=== PATIENT | male | born 1970 | race Caucasian/White ===

== ENCOUNTER 2017-08-21 13:53 | Observation (INO) | payer MEDICAID, OTHER ==
[~2017-08-21] VITALS: Ht 172.7 cm; Wt 86.0 kg
[2017-08-21] MEDS ORDERED: CARV3.1212 PO (14:01)
[2017-08-21] MEDS ORDERED: LISI-170 PO (14:01)
[2017-08-21] MEDS ORDERED: SODIUM CHLORIDE 0.9% 1,000ML IVBOLUS ONE (14:30)
[2017-08-21] MEDS ORDERED: LORazepam 2 MG/ML, 1ML IVPush ONE (14:30)
[2017-08-21] MEDS ORDERED: SODIUM CHLORIDE FLUSH 10ML SYR IVF ONE (14:30)
[2017-08-21 15:00] LABS: BASOPHILS # (AUTO) 0.05 x10^3/uL (0-0.1); BASOPHILS % (AUTO) 0 % (0-1); EOSINOPHILS # (AUTO) 0.15 x10^3/uL (0-0.4); EOSINOPHILS % (AUTO) 1 % (1-7); LYMPHOCYTES # (AUTO) 1.74 x10^3/uL (1-3.4); LYMPHOCYTES % (AUTO) 16 % (22-44); MD NO; MEAN CORPUSCULAR HEMOGLOBIN 29.1 pg (27.5-34.5); MEAN CORPUSCULAR HGB CONC 33.5 g/dL (33.2-36.2); MEAN CORPUSCULAR VOLUME 87.1 fL (81-97); MEAN PLATELET VOLUME 7.2 fL (7.4-10.4); MONOCYTES # (AUTO) 0.52 x10^3/uL (0.2-0.8); MONOCYTES % (AUTO) 5 % (2-9); NEUTROPHILS # (AUTO) 8.71 x10^3/uL (1.8-6.8); NEUTROPHILS % (AUTO) 78 % (42-75); PLATELET COUNT 353 x10^3/uL (130-400); RED BLOOD COUNT 5.92 x10^6/uL (4.38-5.82)
[2017-08-21 15:08] LABS: ALBUMIN 3.9 g/dL (3.4-5.0); ANION GAP 6 mmol/L (5-15); CALCIUM 8.7 mg/dL (8.5-10.1); CHLORIDE 105 mmol/L (98-107)
[2017-08-21 15:09] LABS: SALICYLATE LEVEL < 1.7 mg/dL (2.8-20.0)
[2017-08-21 15:12] LABS: ALANINE AMINOTRANSFERASE 57 U/L (12-78); ALKALINE PHOSPHATASE 70 U/L (45-117); BILIRUBIN,TOTAL 0.9 mg/dL (0.2-1.0); TOTAL PROTEIN 7.3 g/dL (6.4-8.2)
[2017-08-21 15:13] LABS: ACETAMINOPHEN < 2 mcg/mL (10-30)
[2017-08-21] MEDS ORDERED: LORazepam 2 MG/ML, 1ML ONE (15:15)
[2017-08-21 15:35] LABS: AMPHETAMINE SCREEN, URINE Negative (Negative); BARBITURATE SCREEN, URINE Negative (Negative); BENZODIAZEPINE SCREEN, URINE Negative (Negative); CANNABINOID SCREEN, URINE Negative (Negative); COCAINE SCREEN, URINE Negative (Negative); METHADONE SCREEN, URINE Negative (Negative); OPIATE SCREEN, URINE Negative (Negative)
[2017-08-21] MEDS ORDERED: HYDR50TA13 PO (15:49)
[2017-08-21] MEDS ORDERED: SERT100T PO (15:49)
[2017-08-21] MEDS ORDERED: ACETAMINOPHEN 325 MG TABLET PO PRN (20:30)
[2017-08-21] MEDS ORDERED: POLYETHYLENE GLYCOL 17 GM PACKET PO PRN (20:30)
[2017-08-21] MEDS: INSULIN REGULAR 100 UNITS/ML, 3ML VIAL SQ-INSULIN SCH (21:00)
[2017-08-21] MEDS ORDERED: SERTRALINE 50MG TABLET ONE (21:29)
[2017-08-21] MEDS ORDERED: hydrOXyzine 50MG TABLET ONE (21:29)
[2017-08-21] MEDS ORDERED: CARVEDILOL 3.125 MG TABLET ONE (21:29)
[2017-08-21] MEDS: CARVEDILOL 3.125 MG TABLET PO SCH (21:32)
[2017-08-21] MEDS: hydrOXyzine 50MG TABLET PO SCH (21:32)
[2017-08-21] MEDS: SERTRALINE 100MG TABLET PO SCH (21:32)
[2017-08-21] MEDS ORDERED: TEMAZEPAM 15 MG CAPSULE ONE (21:40)
[2017-08-21] MEDS: TEMAZEPAM 15 MG CAPSULE PO PRN (21:44)
[2017-08-22] MEDS ORDERED: LORazepam 1MG TABLET PO ONE ×2 (02:30)
[2017-08-22] MEDS: INSULIN REGULAR 100 UNITS/ML, 3ML VIAL SQ-INSULIN SCH ×4 (07:00→20:39)
[2017-08-22] MEDS ORDERED: LISINOPRIL 20 MG TABLET ONE (07:51)
[2017-08-22] MEDS ORDERED: hydrOXyzine 50MG TABLET ONE (07:51)
[2017-08-22] MEDS ORDERED: CARVEDILOL 3.125 MG TABLET ONE (07:52)
[2017-08-22] MEDS: hydrOXyzine 50MG TABLET PO SCH ×3 (07:58→20:39)
[2017-08-22] MEDS: CARVEDILOL 3.125 MG TABLET PO SCH ×2 (07:59→20:39)
[2017-08-22] MEDS: LISINOPRIL 20 MG TABLET PO SCH (07:59)
[2017-08-22] MEDS ORDERED: LORazepam 1MG TABLET ONE (08:00)
[2017-08-22] MEDS ORDERED: SERTRALINE 50MG TABLET ONE (08:00)
[2017-08-22] MEDS: SERTRALINE 100MG TABLET PO SCH ×2 (08:01→20:39)
[2017-08-22] MEDS ORDERED: ZIPRASIDONE 20MG CAPSULE ONE (11:23)
[2017-08-22] MEDS: ZIPRASIDONE 20MG CAPSULE PO PRN (11:25)
[2017-08-22 15:55] VITALS: BP 105/68
[2017-08-22] MEDS ORDERED: METF500T27 PO (16:25)
[2017-08-22] MEDS ORDERED: HYDR25TA6 PO (16:28)
[2017-08-22] MEDS ORDERED: HYDR50TA13 PO (16:30)
[2017-08-22] MEDS ORDERED: LORA-446 PO (16:36)
[2017-08-22 20:44] VITALS: BP 108/68
[2017-08-23 06:43] VITALS: BP 132/85
[2017-08-23] MEDS: INSULIN REGULAR 100 UNITS/ML, 3ML VIAL SQ-INSULIN SCH ×4 (07:00→21:00)
[2017-08-23 07:08] VITALS: BP 97/65
[2017-08-23 08:06] VITALS: BP 106/67
[2017-08-23] MEDS: SERTRALINE 100MG TABLET PO SCH ×2 (08:09→20:46)
[2017-08-23] MEDS: hydrOXyzine 50MG TABLET PO SCH ×3 (08:09→20:46)
[2017-08-23 09:54] VITALS: BP_SYST 118; BP_SYST 146; BP_DIAS 69; BP_DIAS 71
[2017-08-23] MEDS: LISINOPRIL 20 MG TABLET PO SCH (09:56)
[2017-08-23] MEDS: CARVEDILOL 3.125 MG TABLET PO SCH ×2 (09:56→20:47)
[2017-08-23] MEDS: ZIPRASIDONE 20MG CAPSULE PO PRN (17:26)
[2017-08-23 17:27] VITALS: BP 112/71
[2017-08-23 19:46] VITALS: BP 117/79
[2017-08-23] MEDS: TEMAZEPAM 15 MG CAPSULE PO PRN (20:46)
[2017-08-24] MEDS: INSULIN REGULAR 100 UNITS/ML, 3ML VIAL SQ-INSULIN SCH ×4 (07:27→21:00)
[2017-08-24 08:00] VITALS: BP 112/71
[2017-08-24] MEDS: hydrOXyzine 50MG TABLET PO SCH ×3 (08:32→21:26)
[2017-08-24] MEDS: LISINOPRIL 20 MG TABLET PO SCH (08:32)
[2017-08-24] MEDS: SERTRALINE 100MG TABLET PO SCH ×2 (08:32→21:26)
[2017-08-24] MEDS: CARVEDILOL 3.125 MG TABLET PO SCH ×2 (08:33→21:26)
[2017-08-24] MEDS: ZIPRASIDONE 20MG CAPSULE PO PRN (14:32)
[2017-08-24 19:52] VITALS: BP 113/73
[2017-08-24] MEDS: TEMAZEPAM 15 MG CAPSULE PO PRN (22:51)
[2017-08-25] MEDS: INSULIN REGULAR 100 UNITS/ML, 3ML VIAL SQ-INSULIN SCH ×4 (07:48→20:45)
[2017-08-25 08:38] VITALS: BP 122/80
[2017-08-25] MEDS: hydrOXyzine 50MG TABLET PO SCH ×3 (09:00→20:33)
[2017-08-25] MEDS: SERTRALINE 100MG TABLET PO SCH ×2 (09:00→20:33)
[2017-08-25] MEDS: LISINOPRIL 20 MG TABLET PO SCH (09:00)
[2017-08-25] MEDS: CARVEDILOL 3.125 MG TABLET PO SCH ×2 (09:01→20:33)
[2017-08-25 10:34] VITALS: BP 133/75
[2017-08-25] MEDS: ZIPRASIDONE 20MG CAPSULE PO PRN ×2 (10:34→18:14)
[2017-08-25 19:53] VITALS: BP 113/75
[2017-08-25] MEDS: TEMAZEPAM 15 MG CAPSULE PO PRN (21:55)
[2017-08-26] MEDS: INSULIN REGULAR 100 UNITS/ML, 3ML VIAL SQ-INSULIN SCH ×4 (07:00→19:55)
[2017-08-26 07:40] VITALS: BP 138/80
[2017-08-26] MEDS: hydrOXyzine 50MG TABLET PO SCH ×3 (08:52→20:18)
[2017-08-26] MEDS: SERTRALINE 100MG TABLET PO SCH ×2 (08:52→20:18)
[2017-08-26] MEDS: CARVEDILOL 3.125 MG TABLET PO SCH ×2 (08:52→20:18)
[2017-08-26] MEDS: LISINOPRIL 20 MG TABLET PO SCH (08:53)
[2017-08-26] MEDS: ZIPRASIDONE 20MG CAPSULE PO PRN ×2 (08:53→20:19)
[2017-08-26] MEDS: NICOTINE GUM 2 MG BC PRN ×3 (12:16→21:08)
[2017-08-26 19:55] VITALS: BP 118/80
[2017-08-26] MEDS: TEMAZEPAM 15 MG CAPSULE PO PRN (23:54)
[2017-08-27] MEDS: INSULIN REGULAR 100 UNITS/ML, 3ML VIAL SQ-INSULIN SCH ×2 (07:00→11:00)
[2017-08-27 08:02] VITALS: BP 121/84
[2017-08-27] MEDS: CARVEDILOL 3.125 MG TABLET PO SCH ×2 (08:02→20:27)
[2017-08-27] MEDS: LISINOPRIL 20 MG TABLET PO SCH (08:02)
[2017-08-27] MEDS: NICOTINE GUM 2 MG BC PRN ×4 (08:02→20:30)
[2017-08-27] MEDS: hydrOXyzine 50MG TABLET PO SCH ×3 (08:02→20:27)
[2017-08-27] MEDS: SERTRALINE 100MG TABLET PO SCH ×2 (08:02→20:27)
[2017-08-27] MEDS: ZIPRASIDONE 20MG CAPSULE PO PRN ×3 (08:04→19:28)
[2017-08-27 19:43] VITALS: BP 142/75
[2017-08-27] MEDS: metFORMIN XR 500 MG TAB.ER.24H PO SCH (20:27)
[2017-08-27] MEDS: TEMAZEPAM 15 MG CAPSULE PO PRN (21:26)
[2017-08-28] MEDS: NICOTINE GUM 2 MG BC PRN ×2 (06:23→16:27)
[2017-08-28] MEDS: ZIPRASIDONE 20MG CAPSULE PO PRN ×3 (06:29→16:27)
[2017-08-28 07:35] VITALS: BP 118/76
[2017-08-28] MEDS: hydrOXyzine 50MG TABLET PO SCH ×3 (08:02→21:23)
[2017-08-28] MEDS: SERTRALINE 100MG TABLET PO SCH ×2 (08:02→21:25)
[2017-08-28] MEDS: CARVEDILOL 3.125 MG TABLET PO SCH ×2 (08:02→21:23)
[2017-08-28] MEDS: metFORMIN XR 500 MG TAB.ER.24H PO SCH ×2 (08:02→21:24)
[2017-08-28] MEDS: LISINOPRIL 20 MG TABLET PO SCH (08:02)
[2017-08-28] MEDS: LORazepam 0.5MG TABLET PO PRN ×2 (14:07→18:14)
[2017-08-28 19:47] VITALS: BP 110/57
[2017-08-28] MEDS: TEMAZEPAM 15 MG CAPSULE PO PRN (23:37)
[2017-08-29] MEDS: LORazepam 0.5MG TABLET PO PRN ×2 (03:25→10:37)
[2017-08-29] MEDS: ZIPRASIDONE 20MG CAPSULE PO PRN ×2 (04:56→16:42)
[2017-08-29 05:01] VITALS: BP 123/82
[2017-08-29] MEDS: NICOTINE GUM 2 MG BC PRN ×4 (07:34→16:42)
[2017-08-29] MEDS: hydrOXyzine 50MG TABLET PO SCH ×3 (07:41→21:27)
[2017-08-29 07:55] VITALS: BP 132/87
[2017-08-29] MEDS: CARVEDILOL 3.125 MG TABLET PO SCH ×2 (08:04→21:27)
[2017-08-29] MEDS: LISINOPRIL 20 MG TABLET PO SCH (08:05)
[2017-08-29] MEDS: SERTRALINE 100MG TABLET PO SCH ×2 (08:05→21:00)
[2017-08-29] MEDS: metFORMIN XR 500 MG TAB.ER.24H PO SCH ×2 (08:05→21:27)
[2017-08-29] MEDS: LORazepam 1MG TABLET PO PRN (17:53)
[2017-08-29 19:46] VITALS: BP 124/80
[2017-08-30] MEDS: NICOTINE GUM 2 MG BC PRN ×2 (05:18→12:09)
[2017-08-30] MEDS: LORazepam 1MG TABLET PO PRN (05:25)
[2017-08-30 07:52] VITALS: BP 131/80
[2017-08-30] MEDS: hydrOXyzine 50MG TABLET PO SCH ×2 (08:39→14:54)
[2017-08-30] MEDS: SERTRALINE 100MG TABLET PO SCH (08:39)
[2017-08-30] MEDS: LISINOPRIL 20 MG TABLET PO SCH (08:39)
[2017-08-30] MEDS: CARVEDILOL 3.125 MG TABLET PO SCH (08:40)
[2017-08-30] MEDS: ZIPRASIDONE 20MG CAPSULE PO PRN (08:40)
[2017-08-30] MEDS: metFORMIN XR 500 MG TAB.ER.24H PO SCH (08:40)
== END 2017-08-30 15:06 | disposition home or self-care (01) ==
LOC: ED 14:48 → EDIP 20:21 → INTOOBSV 20:21 → SUATTDRO 20:21 → 3E 08-22 15:31
PROVIDERS: ADMIT Hospitalist; ATTEND Hospitalist
DX: T43.222A Poisoning by selective serotonin reuptake inhibitors, intentional self-harm, initial encounter (principal); F32.9 Major depressive disorder, single episode, unspecified; E11.9 Type 2 diabetes mellitus without complications; E78.00 Pure hypercholesterolemia, unspecified; F41.1 Generalized anxiety disorder; I10 Essential (primary) hypertension; Y92.89 Other specified places as the place of occurrence of the external cause
CPT/HCPCS: 36415; 71045; 80053; 80307; 80329; 82550; 82962; 85025; 93005; 96361; 96374; 99285; G0378; J2060; J7030; 96365; G0480

== ENCOUNTER 2017-10-27 21:17 | Emergency (ER) | payer MEDICAID, OTHER ==
[~2017-10-27] VITALS: Ht 172.7 cm; Wt 88.0 kg
[~2017-10-27 21:17] MED LIST: CARV3.1212 PO; HYDR25TA6 PO; HYDR50TA13 PO; LISI-170 PO; LORA-446 PO; METF500T27 PO; SERT100T PO
[2017-10-27] MEDS ORDERED: LORazepam 1MG TABLET PO ONE (22:00)
[2017-10-27 22:11] LABS: ANION GAP 9 mmol/L (5-15); CALCIUM 8.6 mg/dL (8.5-10.1); CHLORIDE 107 mmol/L (98-107); CREATININE 1.25 mg/dL (0.7-1.3)
[2017-10-27] MEDS ORDERED: ZIPRASIDONE 20 MG INJ IM ONE ×3 (22:14→23:50)
[2017-10-28] MEDS ORDERED: ZIPRASIDONE 20 MG INJ IM ONE
[2017-10-28 00:13] VITALS: BP 149/53
== END 2017-10-28 00:15 | disposition home or self-care (01) ==
LOC: ED 22:27
DX: F31.12 Bipolar disorder, current episode manic without psychotic features, moderate (principal); I10 Essential (primary) hypertension; E11.9 Type 2 diabetes mellitus without complications; F32.9 Major depressive disorder, single episode, unspecified
CPT/HCPCS: 36415; 80048; 96372; 99284; J3486

== ENCOUNTER 2018-07-22 12:34 | Inpatient (IN) | payer MEDICAID ==
[~2018-07-22] VITALS: Ht 172.7 cm; Wt 93.8 kg
[2018-07-22 13:30] VITALS: BP 127/87
[2018-07-22] MEDS ORDERED: PLEASE ENTER HEIGHT AND WEIGHT MC SCH ×2 (14:25→14:30)
[2018-07-22] MEDS ORDERED: ACETAMINOPHEN 325 MG TABLET PO PRN (14:30)
[2018-07-22] MEDS ORDERED: DEXTROSE 50%, 50ML SYRINGE IVPush PRN (14:30)
[2018-07-22] MEDS ORDERED: BISACODYL 10 MG SUPP PR PRN (14:30)
[2018-07-22] MEDS ORDERED: GLUCAGON 1 MG IM PRN (14:30)
[2018-07-22] MEDS ORDERED: SENNA/DOCUSATE TABLET PO PRN (14:30)
[2018-07-22] MEDS ORDERED: DEXTROSE 4 GM TAB.CHEW PO PRN (14:30)
[2018-07-22] MEDS ORDERED: LORazepam 2 MG/ML, 1ML IV PRN ×4 (14:30)
[2018-07-22 15:42] LABS: BASOPHILS % (AUTO) 0 % (0-1); EOSINOPHILS # (AUTO) 0.01 x10^3/uL (0-0.4); EOSINOPHILS % (AUTO) 0 % (1-7); LYMPHOCYTES # (AUTO) 0.72 x10^3/uL (1-3.4); LYMPHOCYTES % (AUTO) 7 % (22-44); MD NO; MEAN CORPUSCULAR HEMOGLOBIN 31.3 pg (27.5-34.5); MEAN CORPUSCULAR HGB CONC 34.5 g/dL (33.2-36.2); MEAN CORPUSCULAR VOLUME 90.9 fL (81-97); MEAN PLATELET VOLUME 7.9 fL (7.4-10.4); MONOCYTES # (AUTO) 0.42 x10^3/uL (0.2-0.8); MONOCYTES % (AUTO) 4 % (2-9); NEUTROPHILS # (AUTO) 8.87 x10^3/uL (1.8-6.8); NEUTROPHILS % (AUTO) 89 % (42-75); PLATELET COUNT 256 x10^3/uL (130-400); RED BLOOD COUNT 5.35 x10^6/uL (4.38-5.82); RED CELL DISTRIBUTION WIDTH 12.8 % (9.4-14.8)
[2018-07-22 15:45] VITALS: BP 127/81
[2018-07-22 15:46] LABS: O2 FLOW ROOM AIR L/min
[2018-07-22] MEDS: LORazepam 2 MG/ML, 1ML IV PRN ×2 (15:46→17:30)
[2018-07-22] MEDS: HEPARIN 5,000 UNITS/ML, 1ML SQ SCH ×2 (15:46→20:35)
[2018-07-22 15:54] LABS: ALANINE AMINOTRANSFERASE 30 U/L (12-78); ALBUMIN 4.5 g/dL (3.4-5.0); ANION GAP 13 mmol/L (5-15); CALCIUM 9.7 mg/dL (8.5-10.1); CHLORIDE 89 mmol/L (98-107); CREATININE 1.95 mg/dL (0.7-1.3)
[2018-07-22 15:55] LABS: INTERNATIONAL NORMALIZED RATIO 1.08 (0.93-1.1); PROTHROMBIN TIME 11.3 Seconds (9.6-11.5)
[2018-07-22 15:56] LABS: ALKALINE PHOSPHATASE 118 U/L (45-117); BILIRUBIN,TOTAL 1.4 mg/dL (0.2-1.0); TOTAL PROTEIN 8.4 g/dL (6.4-8.2)
[2018-07-22] MEDS: SODIUM CHLORIDE 0.9% 1,000 ML IV SCH (17:20)
[2018-07-22] MEDS: metFORMIN 500 MG TABLET PO SCH (17:21)
[2018-07-22] MEDS: INSULIN LISPRO 100 UNITS/ML, PEN SQ-INSULIN SCH ×2 (18:06→20:50)
[2018-07-22] MEDS: POTASSIUM CHLORIDE 20 MEQ, MAGNESIUM SULFATE 1 GM, FOLIC ACID 1 MG, THIAMINE 200 MG, MV... IV SCH (18:17)
[2018-07-22 19:13] LABS: TROPONIN I 0.032 ng/mL (0.000-0.045)
[2018-07-22 19:22] LABS: AMPHETAMINE SCREEN, URINE Negative (Negative); BARBITURATE SCREEN, URINE Negative (Negative); BENZODIAZEPINE SCREEN, URINE Negative (Negative); CANNABINOID SCREEN, URINE Negative (Negative); CHLORIDE,URINE RANDOM 38 mmol/L; COCAINE SCREEN, URINE Negative (Negative); METHADONE SCREEN, URINE Negative (Negative); OPIATE SCREEN, URINE Positive (Negative); POTASSIUM,URINE RANDOM 23 mmol/L; SODIUM,URINE RANDOM 23 mmol/L
[2018-07-22] MEDS: ATORVASTATIN 20 MG TABLET PO SCH (20:34)
[2018-07-22] MEDS: SODIUM CHLORIDE FLUSH 10ML SYR IVF SCH (20:36)
[2018-07-22 21:00] VITALS: BP 115/69
[2018-07-22 22:42] LABS: ALBUMIN 4.1 g/dL (3.4-5.0); ANION GAP 11 mmol/L (5-15); CALCIUM 9.5 mg/dL (8.5-10.1); CHLORIDE 93 mmol/L (98-107)
[2018-07-22 22:47] LABS: ALANINE AMINOTRANSFERASE 26 U/L (12-78); ALKALINE PHOSPHATASE 107 U/L (45-117); BILIRUBIN,TOTAL 1.5 mg/dL (0.2-1.0); CREATININE 1.41 mg/dL (0.7-1.3); TOTAL PROTEIN 7.7 g/dL (6.4-8.2)
[2018-07-22] MEDS ORDERED: OMNIPAQUE 350 MG/ML, 100ML BOTTLE ONE (23:00)
[2018-07-22] MEDS: HYDROcodone/APAP 5/325 TABLET PO PRN (23:14)
[2018-07-23 01:47] VITALS: BP 132/74
[2018-07-23] MEDS: HYDROcodone/APAP 5/325 TABLET PO PRN ×5 (03:21→22:19)
[2018-07-23] MEDS: OMEPRAZOLE 20 MG CAPSULE.DR PO SCH (05:30)
[2018-07-23] MEDS: HEPARIN 5,000 UNITS/ML, 1ML SQ SCH ×3 (05:30→22:19)
[2018-07-23 06:29] LABS: ALBUMIN 3.8 g/dL (3.4-5.0); ANION GAP 12 mmol/L (5-15); CALCIUM 8.9 mg/dL (8.5-10.1); CHLORIDE 91 mmol/L (98-107)
[2018-07-23 06:30] LABS: BASOPHILS # (AUTO) 0.03 x10^3/uL (0-0.1); BASOPHILS % (AUTO) 0 % (0-1); EOSINOPHILS # (AUTO) 0.07 x10^3/uL (0-0.4); EOSINOPHILS % (AUTO) 1 % (1-7); LYMPHOCYTES # (AUTO) 1.12 x10^3/uL (1-3.4); LYMPHOCYTES % (AUTO) 13 % (22-44); MD NO; MEAN CORPUSCULAR HEMOGLOBIN 31.7 pg (27.5-34.5); MEAN CORPUSCULAR HGB CONC 34.9 g/dL (33.2-36.2); MEAN CORPUSCULAR VOLUME 90.8 fL (81-97); MEAN PLATELET VOLUME 8.4 fL (7.4-10.4); MONOCYTES # (AUTO) 0.66 x10^3/uL (0.2-0.8); MONOCYTES % (AUTO) 8 % (2-9); NEUTROPHILS # (AUTO) 6.47 x10^3/uL (1.8-6.8); NEUTROPHILS % (AUTO) 78 % (42-75); PLATELET COUNT 218 x10^3/uL (130-400); RED BLOOD COUNT 5.18 x10^6/uL (4.38-5.82)
[2018-07-23 06:32] LABS: ALANINE AMINOTRANSFERASE 27 U/L (12-78); ALKALINE PHOSPHATASE 104 U/L (45-117); BILIRUBIN,TOTAL 1.3 mg/dL (0.2-1.0); CREATININE 1.08 mg/dL (0.7-1.3); TOTAL PROTEIN 7.5 g/dL (6.4-8.2)
[2018-07-23] MEDS ORDERED: POTASSIUM CHLORIDE 20 MEQ TAB.ER.PRT PO ONE (07:30)
[2018-07-23] MEDS: metFORMIN 500 MG TABLET PO SCH ×2 (07:48→16:38)
[2018-07-23 07:49] LABS: HEMOGLOBIN A1C 8.8 % (4.2-6.3)
[2018-07-23 07:55] VITALS: BP 145/81
[2018-07-23] MEDS: INSULIN LISPRO 100 UNITS/ML, PEN SQ-INSULIN SCH ×4 (07:57→22:18)
[2018-07-23] MEDS: LISINOPRIL 20 MG TABLET PO SCH (07:57)
[2018-07-23] MEDS: SODIUM CHLORIDE FLUSH 10ML SYR IVF SCH ×2 (07:57→22:19)
[2018-07-23] MEDS: OLANZAPINE 10 MG TABLET PO SCH (07:57)
[2018-07-23] MEDS: SODIUM CHLORIDE 0.9% 1,000 ML IV SCH (09:06)
[2018-07-23] MEDS: LORazepam 2 MG/ML, 1ML IV PRN (12:46)
[2018-07-23] MEDS: D5%-0.9% NACL 1,000 ML IV SCH (12:48)
[2018-07-23 13:58] VITALS: BP 139/78
[2018-07-23 17:01] LABS: ANION GAP 9 mmol/L (5-15); CALCIUM 8.7 mg/dL (8.5-10.1); CHLORIDE 97 mmol/L (98-107); CREATININE 0.94 mg/dL (0.7-1.3)
[2018-07-23] MEDS: POTASSIUM CHLORIDE 20 MEQ, MAGNESIUM SULFATE 1 GM, FOLIC ACID 1 MG, THIAMINE 200 MG, MV... IV SCH (17:57)
[2018-07-23 20:53] VITALS: BP 127/83
[2018-07-23] MEDS ORDERED: INSULIN GLARGINE 100 UNITS/ML, PEN SQ-INSULIN SCH (21:00)
[2018-07-23] MEDS: ATORVASTATIN 20 MG TABLET PO SCH (22:19)
[2018-07-24 01:41] VITALS: BP 134/93
[2018-07-24] MEDS: HYDROcodone/APAP 5/325 TABLET PO PRN ×4 (05:29→20:00)
[2018-07-24] MEDS: OMEPRAZOLE 20 MG CAPSULE.DR PO SCH (05:29)
[2018-07-24] MEDS: HEPARIN 5,000 UNITS/ML, 1ML SQ SCH ×3 (05:30→22:30)
[2018-07-24 06:44] LABS: CHLORIDE 99 mmol/L (98-107)
[2018-07-24 06:52] LABS: ALANINE AMINOTRANSFERASE 30 U/L (12-78); ALBUMIN 3.3 g/dL (3.4-5.0); ALKALINE PHOSPHATASE 91 U/L (45-117); ANION GAP 8 mmol/L (5-15); BILIRUBIN,TOTAL 1.2 mg/dL (0.2-1.0); CALCIUM 8.5 mg/dL (8.5-10.1); CREATININE 0.88 mg/dL (0.7-1.3); TOTAL PROTEIN 6.8 g/dL (6.4-8.2)
[2018-07-24 07:01] VITALS: BP 135/89
[2018-07-24] MEDS: metFORMIN 500 MG TABLET PO SCH ×2 (08:35→16:36)
[2018-07-24] MEDS: SODIUM CHLORIDE FLUSH 10ML SYR IVF SCH ×2 (08:35→21:00)
[2018-07-24] MEDS: D5%-0.9% NACL 1,000 ML IV SCH (08:35)
[2018-07-24] MEDS: OLANZAPINE 10 MG TABLET PO SCH (08:35)
[2018-07-24] MEDS: LISINOPRIL 20 MG TABLET PO SCH (08:35)
[2018-07-24 08:36] VITALS: BP 147/91
[2018-07-24] MEDS: INSULIN LISPRO 100 UNITS/ML, PEN SQ-INSULIN SCH ×4 (08:36→21:19)
[2018-07-24 13:59] VITALS: BP 143/94
[2018-07-24] MEDS: SODIUM CHLORIDE 0.9% 1,000 ML IV SCH (16:24)
[2018-07-24 17:54] VITALS: BP 118/79
[2018-07-24 18:51] VITALS: BP 133/84
[2018-07-24] MEDS ORDERED: INSULIN GLARGINE 100 UNITS/ML, PEN SQ-INSULIN SCH (21:00)
[2018-07-24] MEDS ORDERED: ATORVASTATIN 80 MG TABLET PO SCH (21:00)
[2018-07-24] MEDS ORDERED: LORazepam 1MG TABLET PO PRN (22:00)
[2018-07-25] VITALS: BP 125/81
[2018-07-25] MEDS: SODIUM CHLORIDE 0.9% 1,000 ML IV SCH (04:03)
[2018-07-25 04:41] LABS: ALANINE AMINOTRANSFERASE 32 U/L (12-78); ALBUMIN 3.4 g/dL (3.4-5.0); ANION GAP 5 mmol/L (5-15); BASOPHILS # (AUTO) 0.03 x10^3/uL (0-0.1); BASOPHILS % (AUTO) 1 % (0-1); CALCIUM 8.7 mg/dL (8.5-10.1); CHLORIDE 105 mmol/L (98-107); CREATININE 0.91 mg/dL (0.7-1.3); EOSINOPHILS % (AUTO) 3 % (1-7); LYMPHOCYTES # (AUTO) 1.94 x10^3/uL (1-3.4); LYMPHOCYTES % (AUTO) 34 % (22-44); MD NO; MEAN CORPUSCULAR HEMOGLOBIN 31.8 pg (27.5-34.5); MEAN CORPUSCULAR HGB CONC 34.8 g/dL (33.2-36.2); MEAN CORPUSCULAR VOLUME 91.6 fL (81-97); MEAN PLATELET VOLUME 7.6 fL (7.4-10.4); MONOCYTES # (AUTO) 0.43 x10^3/uL (0.2-0.8); MONOCYTES % (AUTO) 8 % (2-9); NEUTROPHILS # (AUTO) 3.15 x10^3/uL (1.8-6.8); NEUTROPHILS % (AUTO) 55 % (42-75); PLATELET COUNT 218 x10^3/uL (130-400); RED BLOOD COUNT 4.91 x10^6/uL (4.38-5.82); RED CELL DISTRIBUTION WIDTH 12.8 % (9.4-14.8)
[2018-07-25 04:44] LABS: ALKALINE PHOSPHATASE 90 U/L (45-117); BILIRUBIN,TOTAL 0.6 mg/dL (0.2-1.0); TOTAL PROTEIN 6.7 g/dL (6.4-8.2)
[2018-07-25] MEDS: HYDROcodone/APAP 5/325 TABLET PO PRN (04:59)
[2018-07-25] MEDS: OMEPRAZOLE 20 MG CAPSULE.DR PO SCH (06:21)
[2018-07-25] MEDS: HEPARIN 5,000 UNITS/ML, 1ML SQ SCH (06:22)
[2018-07-25] MEDS ORDERED: HYDROcodone/APAP 5/325 TABLET PO PRN (06:30)
[2018-07-25] MEDS: metFORMIN 500 MG TABLET PO SCH (07:28)
[2018-07-25] MEDS: INSULIN LISPRO 100 UNITS/ML, PEN SQ-INSULIN SCH ×2 (07:28→11:56)
[2018-07-25] MEDS: LISINOPRIL 20 MG TABLET PO SCH (09:14)
[2018-07-25] MEDS: SODIUM CHLORIDE FLUSH 10ML SYR IVF SCH (09:15)
[2018-07-25] MEDS: OLANZAPINE 10 MG TABLET PO SCH (09:19)
[2018-07-25 09:24] VITALS: BP 121/78
[2018-07-25] MEDS ORDERED: ATOR-2 PO (11:41)
[2018-07-25] MEDS ORDERED: METF500T27 PO (11:41)
== END 2018-07-25 13:04 | disposition home or self-care (01) | DRG 432 ==
LOC: 5SO 13:11 → 4NOR 07-24 17:30 → DCLOUNGE 07-25 12:55
PROVIDERS: ADMIT Family Medicine; ATTEND Family Medicine
DX: K70.9 Alcoholic liver disease, unspecified (principal); K85.20 Alcohol induced acute pancreatitis without necrosis or infection; N17.9 Acute kidney failure, unspecified; F10.239 Alcohol dependence with withdrawal, unspecified; E87.1 Hypo-osmolality and hyponatremia; E78.5 Hyperlipidemia, unspecified; E11.9 Type 2 diabetes mellitus without complications; E86.0 Dehydration; K76.0 Fatty (change of) liver, not elsewhere classified; I11.9 Hypertensive heart disease without heart failure; E78.1 Pure hyperglyceridemia; Y90.9 Presence of alcohol in blood, level not specified; E86.1 Hypovolemia; F41.9 Anxiety disorder, unspecified; F31.9 Bipolar disorder, unspecified; Z87.891 Personal history of nicotine dependence; Z82.49 Family history of ischemic heart disease and other diseases of the circulatory system; Z83.3 Family history of diabetes mellitus; Z79.84 Long term (current) use of oral hypoglycemic drugs; Z79.899 Other long term (current) drug therapy; Z88.0 Allergy status to penicillin
CPT/HCPCS: 36415; 36600; J7042; 71046; 71275; 76700; 80048; 80053; 80307; 82150; 82436; 82803; 82962; 83036; 83690; 84133; 84300; 84443; 84478; 84484; 85025; 85379; 85610; 85730; 93005; 93306; G0378; J1644; J3411; J3475; J3480; Q9967; J1815; J2060; J7030

== ENCOUNTER 2018-10-03 15:18 | Inpatient (IN) | payer MEDICAID ==
[~2018-10-03] VITALS: Ht 172.7 cm; Wt 92.5 kg
[~2018-10-03 15:18] MED LIST changes: +ATOR-2 PO
[2018-10-03] MEDS ORDERED: THIAMINE 100 MG in SODIUM CHLORIDE 0.9% 50 ML IV ONE (15:56)
[2018-10-03] MEDS ORDERED: DEXTROSE 10%, 250ML IV STA (15:57)
--- NOTE | 2018-10-03 16:07 | NUR ---
Patient bs recheck 95
[2018-10-03] MEDS ORDERED: GLIM1TAB2 PO (16:11)
[2018-10-03 16:13] LABS: BASOPHILS # (AUTO) 0.05 x10^3/uL (0-0.1); BASOPHILS % (AUTO) 0 % (0-1); EOSINOPHILS # (AUTO) 0.06 x10^3/uL (0-0.4); EOSINOPHILS % (AUTO) 1 % (1-7); LYMPHOCYTES # (AUTO) 1.41 x10^3/uL (1-3.4); LYMPHOCYTES % (AUTO) 13 % (22-44); MD NO; MEAN CORPUSCULAR HEMOGLOBIN 31.3 pg (27.5-34.5); MEAN CORPUSCULAR VOLUME 91.8 fL (81-97); MEAN PLATELET VOLUME 7.5 fL (7.4-10.4); MONOCYTES # (AUTO) 0.69 x10^3/uL (0.2-0.8); MONOCYTES % (AUTO) 6 % (2-9); NEUTROPHILS # (AUTO) 8.44 x10^3/uL (1.8-6.8); NEUTROPHILS % (AUTO) 79 % (42-75); PLATELET COUNT 342 x10^3/uL (130-400); RED BLOOD COUNT 4.68 x10^6/uL (4.38-5.82); RED CELL DISTRIBUTION WIDTH 14.3 % (9.4-14.8)
[2018-10-03 16:27] LABS: CHLORIDE 84 mmol/L (98-107)
[2018-10-03] MEDS ORDERED: DEXTROSE 10% 250 ML IV ONE (16:30)
[2018-10-03 16:34] LABS: ALANINE AMINOTRANSFERASE 72 U/L (12-78); ALBUMIN 4.1 g/dL (3.4-5.0); ALKALINE PHOSPHATASE 67 U/L (45-117); ANION GAP 27 mmol/L (5-15); BILIRUBIN,TOTAL 0.8 mg/dL (0.2-1.0); CALCIUM 8.1 mg/dL (8.5-10.1); TOTAL PROTEIN 7.6 g/dL (6.4-8.2)
[2018-10-03] MEDS ORDERED: SODIUM BICARBONATE 8.4% 150 MEQ in DEXTROSE 5% 1,000 ML IV ONE (16:50)
[2018-10-03] MEDS ORDERED: SODIUM CHLORIDE 0.9%, 500ML IVBOLUS ONE (17:00)
[2018-10-03] MEDS ORDERED: HYDROcodone/APAP 5/325 TABLET ONE (17:25)
[2018-10-03] MEDS ORDERED: HYDROcodone/APAP 5/325 TABLET PO ONE (17:30)
--- NOTE | 2018-10-03 17:47 | NUR ---
MEAL TRAY ORDERED
--- NOTE | 2018-10-03 17:53 | NUR ---
PT GIVEN PB AND JELLY AFTER THIRD BS 59.
--- NOTE | 2018-10-03 18:01 | NUR ---
[facility] PAGED FOR ZOFRAN RX
--- NOTE | 2018-10-03 18:01 | NUR ---
MEAL TRAY GIVEN TO PATIENT
[2018-10-03] MEDS ORDERED: ONDANSETRON 2MG/ML, 2ML ONE (18:16)
--- NOTE | 2018-10-03 18:22 | NUR ---
PATIENT EATING. RECHECK BS 51. [facility] PAGED
--- NOTE | 2018-10-03 18:29 | NUR ---
SPOKE WITH MD SULLIVAN. HYPO GLYCEMIC ORDERS TO BE PUT IN
[2018-10-03] MEDS ORDERED: CHLORDIAZEPOXIDE 25 MG CAPSULE PO PRN ×2 (18:30)
[2018-10-03] MEDS ORDERED: hydrOXyzine 50MG TABLET PO SCH (18:30)
[2018-10-03] MEDS ORDERED: ACETAMINOPHEN 325 MG TABLET PO PRN (18:30)
[2018-10-03] MEDS ORDERED: ONDANSETRON ODT 4 MG PO PRN (18:30)
[2018-10-03] MEDS ORDERED: GLUCAGON 1 MG IM PRN (18:30)
[2018-10-03] MEDS ORDERED: CHLORDIAZEPOXIDE 10 MG CAPSULE PO PRN (18:30)
[2018-10-03] MEDS ORDERED: D5%-0.9% NACL 1,000 ML IV SCH (18:30)
[2018-10-03] MEDS ORDERED: ONDANSETRON 2MG/ML, 2ML IVPush PRN (18:30)
[2018-10-03] MEDS ORDERED: DEXTROSE 4 GM TAB.CHEW PO PRN (18:30)
[2018-10-03] MEDS ORDERED: LABETALOL 5MG/ML, 20ML IVPush PRN (18:30)
--- NOTE | 2018-10-03 18:46 | NUR ---
PATIENT GF CAME TO GET RN TO REPORT THAT THE PATIETN FEELS DIZZY. PATIENT DSBD 65, 1/2 AMP OF D50 PUSHED FROM PHARMACY
[2018-10-03] MEDS: DEXTROSE 50%, 50ML SYRINGE IVPush PRN ×4 (18:54→23:33)
--- NOTE | 2018-10-03 19:06 | NUR ---
REPORT TO FERNANDEZ
--- NOTE | 2018-10-03 19:25 | NUR ---
REPORT FROM NIKITA DUMONT. FSBS UP TO 67. PT SAYS NAUSEA HAS IMPROVED AND GIVEN PO FLUIDS. VSS. SO AT BEDSIDE. VSS. WILL CONTINUE TO MONITOR BS
--- NOTE | 2018-10-03 19:53 | NUR ---
2ND PIV STARTED AND FLUIDS RUNNING. WILL RECHECK FSBG AT 2015
--- NOTE | 2018-10-03 20:28 | NUR ---
NEPHROLOGY AT BEDSIDE. PT VOMITING. RECHECK FSBG 46. AMP OF 1/2 AMP OF D50 GIVEN. WILL CONTINUE TO MONITOR
--- NOTE | 2018-10-03 20:33 | NUR ---
spoke with unr admit and he will be here to see pt. pt upgraded to icu level of care.
[2018-10-03] MEDS ORDERED: CHLORDIAZEPOXIDE 25 MG CAPSULE ONE ×2 (20:48→22:17)
[2018-10-03] MEDS: CHLORDIAZEPOXIDE 25 MG CAPSULE PO PRN ×2 (20:54→22:20)
--- NOTE | 2018-10-03 20:56 | NUR ---
FSBG RECHECK 57. D50 ORDERED FROM PHARMACY. PT MEDICATED WITH LIBRIUM FOR DETOX SYMPTOMS
--- NOTE | 2018-10-03 21:22 | NUR ---
PT MEDICATED WITH 25 ML D50%. WILL RECHECK IN 15 MIN
--- NOTE | 2018-10-03 21:41 | NUR ---
FSBG NOW 97. PT SAYS HE IS FEELING BETTER. LIBRIUM IS HELPING WITH DETOX SYMPTOMS. HR ELEVATED BUT OTHER VSS. CALL LIGHT IN REACH
[2018-10-03] MEDS ORDERED: POTASSIUM CHLORIDE 20 MEQ in SODIUM CHLORIDE 0.9% 250 ML IV ONE (22:00)
--- NOTE | 2018-10-03 22:23 | NUR ---
PT REMEDICATED FOR CIWA. HR ELEVATED . PT TREMULOUS AND NAUSEOUS. OTHER VSS. WILL RECHECK FSBG IN 30 MIN.
[2018-10-03 22:57] LABS: ANION GAP 22 mmol/L (5-15); CHLORIDE 87 mmol/L (98-107); CREATININE 8.11 mg/dL (0.7-1.3)
[2018-10-03] MEDS ORDERED: ATARAX MC SCH (23:00)
[2018-10-03 23:02] LABS: SALICYLATE LEVEL < 1.7 mg/dL (2.8-20.0)
[2018-10-03 23:04] LABS: AMPHETAMINE SCREEN, URINE Negative (Negative); BARBITURATE SCREEN, URINE Negative (Negative); BENZODIAZEPINE SCREEN, URINE Negative (Negative); CANNABINOID SCREEN, URINE Negative (Negative); COCAINE SCREEN, URINE Negative (Negative); METHADONE SCREEN, URINE Negative (Negative); OPIATE SCREEN, URINE Negative (Negative); SODIUM,URINE RANDOM 32 mmol/L
[2018-10-03 23:13] LABS: MICROSCOPIC INDICATED
[2018-10-03 23:15] LABS: CULTURE INDICATED? YES
[2018-10-03 23:29] LABS: OSMOLALITY,URINE 290 mOsm/kg (500-850)
[2018-10-03] MEDS ORDERED: PHENOBARBITAL ETOH DETOX PER PHARMACY MC PRN (23:30)
[2018-10-03] MEDS: SODIUM CHLORIDE FLUSH 10ML SYR IVF SCH (23:34)
[2018-10-03] MEDS: SERTRALINE 100MG TABLET PO SCH (23:45)
[2018-10-03] MEDS: HYDROcodone/APAP 5/325 TABLET PO PRN (23:45)
[2018-10-03] MEDS ORDERED: PHENOBARBITAL SODIUM 690 MG in SODIUM CHLORIDE 0.9% 50 ML IV ONE (23:45)
[2018-10-04] MEDS ORDERED: PHENOBARBITAL ETOH DETOX PER PHARMACY MC PRN
[2018-10-04 04:27] LABS: BASOPHILS # (AUTO) 0.03 x10^3/uL (0-0.1); BASOPHILS % (AUTO) 0 % (0-1); EOSINOPHILS # (AUTO) 0.11 x10^3/uL (0-0.4); EOSINOPHILS % (AUTO) 1 % (1-7); LYMPHOCYTES # (AUTO) 1.22 x10^3/uL (1-3.4); LYMPHOCYTES % (AUTO) 14 % (22-44); MD NO; MEAN CORPUSCULAR HEMOGLOBIN 31.5 pg (27.5-34.5); MEAN CORPUSCULAR HGB CONC 34.3 g/dL (33.2-36.2); MEAN CORPUSCULAR VOLUME 91.9 fL (81-97); MEAN PLATELET VOLUME 7.8 fL (7.4-10.4); MONOCYTES # (AUTO) 0.66 x10^3/uL (0.2-0.8); MONOCYTES % (AUTO) 8 % (2-9); NEUTROPHILS # (AUTO) 6.63 x10^3/uL (1.8-6.8); NEUTROPHILS % (AUTO) 77 % (42-75); PLATELET COUNT 240 x10^3/uL (130-400); RED BLOOD COUNT 4.32 x10^6/uL (4.38-5.82); RED CELL DISTRIBUTION WIDTH 14.8 % (9.4-14.8)
[2018-10-04] MEDS: HYDROcodone/APAP 5/325 TABLET PO PRN ×5 (04:29→22:32)
[2018-10-04 04:36] LABS: ANION GAP 15 mmol/L (5-15); CALCIUM 7.6 mg/dL (8.5-10.1); CHLORIDE 89 mmol/L (98-107)
[2018-10-04 04:37] LABS: CREATININE 7.39 mg/dL (0.7-1.3)
[2018-10-04] MEDS ORDERED: POTASSIUM CHLORIDE 40 MEQ in SODIUM CHLORIDE 0.9% 500 ML IV ONE (05:30)
[2018-10-04] MEDS ORDERED: POTASSIUM CHLORIDE 20 MEQ TAB.ER.PRT PO ONE (06:30)
[2018-10-04] MEDS: SENNA/DOCUSATE TABLET PO SCH (08:24)
[2018-10-04] MEDS: SERTRALINE 100MG TABLET PO SCH ×2 (08:24→21:00)
[2018-10-04] MEDS: CARVEDILOL 3.125 MG TABLET PO SCH (08:29)
[2018-10-04] MEDS: PHENOBARBITAL 20 MG/5 ML ORAL SOL PO SCH ×2 (08:30→21:00)
[2018-10-04] MEDS: SODIUM CHLORIDE FLUSH 10ML SYR IVF SCH ×2 (08:30→21:04)
[2018-10-04] MEDS ORDERED: SODIUM CHLORIDE 0.9% 1,000 ML IV SCH (09:00)
[2018-10-04] MEDS ORDERED: FAMOTIDINE 20 MG TABLET PO SCH (09:00)
[2018-10-04] MEDS: SODIUM CHLORIDE 0.9% 1,000 ML IV SCH ×2 (09:31→17:41)
[2018-10-04] MEDS ORDERED: ERGOCALCIFEROL 50,000 UNIT CAPSULE PO SCH (10:00)
[2018-10-04] MEDS ORDERED: PNEUMOCOCCAL 23 VACCINE IM-VACC ONE ×2 (10:21→10:30)
[2018-10-04 10:55] VITALS: BP 99/69
[2018-10-04 12:39] VITALS: BP 104/76
[2018-10-04] MEDS ORDERED: LORazepam 1MG TABLET PO ONE (13:00)
[2018-10-04 13:56] LABS: ANION GAP 13 mmol/L (5-15); CALCIUM 7.9 mg/dL (8.5-10.1); CHLORIDE 93 mmol/L (98-107)
[2018-10-04] MEDS ORDERED: LORazepam 1MG TABLET PO PRN (17:00)
[2018-10-04] MEDS ORDERED: INSULIN REGULAR 100 UNITS/ML, 3ML VIAL SQ-INSULIN ONE (17:00)
[2018-10-04] MEDS: INSULIN LISPRO 100 UNITS/ML, PEN SQ-INSULIN SCH ×2 (17:30→21:01)
[2018-10-04] MEDS ORDERED: D5%-0.9% NACL 1,000 ML IV SCH (18:30)
[2018-10-04 19:46] VITALS: BP 100/63
[2018-10-04 23:36] LABS: ANION GAP 10 mmol/L (5-15); CALCIUM 8.1 mg/dL (8.5-10.1); CHLORIDE 100 mmol/L (98-107); CREATININE 3.54 mg/dL (0.7-1.3)
[2018-10-05] MEDS: SODIUM CHLORIDE 0.9% 1,000 ML IV SCH ×4 (00:07→23:12)
[2018-10-05 01:54] VITALS: BP 94/65
[2018-10-05] MEDS: HYDROcodone/APAP 5/325 TABLET PO PRN ×4 (02:38→21:08)
[2018-10-05 05:48] LABS: CHLORIDE 103 mmol/L (98-107)
[2018-10-05 06:00] LABS: % IRON SATURATION 74 % (20-55); ALANINE AMINOTRANSFERASE 46 U/L (12-78); ALBUMIN 3.2 g/dL (3.4-5.0); ALKALINE PHOSPHATASE 52 U/L (45-117); ANION GAP 11 mmol/L (5-15); BASOPHILS # (AUTO) 0.04 x10^3/uL (0-0.1); BASOPHILS % (AUTO) 1 % (0-1); BILIRUBIN,TOTAL 2.2 mg/dL (0.2-1.0); CALCIUM 8.2 mg/dL (8.5-10.1); CREATININE 2.68 mg/dL (0.7-1.3); EOSINOPHILS # (AUTO) 0.27 x10^3/uL (0-0.4); EOSINOPHILS % (AUTO) 6 % (1-7); IRON LEVEL 229 mcg/dL (65-175); LYMPHOCYTES # (AUTO) 1.43 x10^3/uL (1-3.4); LYMPHOCYTES % (AUTO) 31 % (22-44); MD NO; MEAN CORPUSCULAR HEMOGLOBIN 31.8 pg (27.5-34.5); MEAN CORPUSCULAR HGB CONC 34.2 g/dL (33.2-36.2); MEAN CORPUSCULAR VOLUME 92.9 fL (81-97); MONOCYTES % (AUTO) 9 % (2-9); NEUTROPHILS # (AUTO) 2.47 x10^3/uL (1.8-6.8); NEUTROPHILS % (AUTO) 54 % (42-75); PLATELET COUNT 214 x10^3/uL (130-400); RED BLOOD COUNT 3.91 x10^6/uL (4.38-5.82); RED CELL DISTRIBUTION WIDTH 14.1 % (9.4-14.8); TOTAL IRON BINDING CAPACITY 308 mcg/dL (250-450); TOTAL PROTEIN 6.1 g/dL (6.4-8.2)
[2018-10-05 06:45] VITALS: BP 110/73
[2018-10-05] MEDS: INSULIN LISPRO 100 UNITS/ML, PEN SQ-INSULIN SCH ×4 (08:14→20:00)
[2018-10-05] MEDS: SERTRALINE 100MG TABLET PO SCH ×2 (08:15→19:59)
[2018-10-05] MEDS: PHENOBARBITAL 20 MG/5 ML ORAL SOL PO SCH ×2 (08:15→20:00)
[2018-10-05] MEDS: FAMOTIDINE 20 MG TABLET PO SCH (08:15)
[2018-10-05] MEDS: SENNA/DOCUSATE TABLET PO SCH (08:15)
[2018-10-05] MEDS: CARVEDILOL 3.125 MG TABLET PO SCH (08:15)
[2018-10-05] MEDS: SODIUM CHLORIDE FLUSH 10ML SYR IVF SCH ×2 (08:16→20:00)
[2018-10-05 12:26] VITALS: BP 109/68
[2018-10-06 01:30] VITALS: BP 121/85
[2018-10-06 05:35] LABS: BASOPHILS # (AUTO) 0.02 x10^3/uL (0-0.1); BASOPHILS % (AUTO) 1 % (0-1); EOSINOPHILS # (AUTO) 0.39 x10^3/uL (0-0.4); EOSINOPHILS % (AUTO) 9 % (1-7); LYMPHOCYTES # (AUTO) 1.81 x10^3/uL (1-3.4); LYMPHOCYTES % (AUTO) 41 % (22-44); MD NO; MEAN CORPUSCULAR HEMOGLOBIN 31.9 pg (27.5-34.5); MEAN CORPUSCULAR VOLUME 93.8 fL (81-97); MEAN PLATELET VOLUME 8.4 fL (7.4-10.4); MONOCYTES # (AUTO) 0.36 x10^3/uL (0.2-0.8); MONOCYTES % (AUTO) 8 % (2-9); NEUTROPHILS # (AUTO) 1.86 x10^3/uL (1.8-6.8); NEUTROPHILS % (AUTO) 42 % (42-75); PLATELET COUNT 239 x10^3/uL (130-400); RED BLOOD COUNT 4.14 x10^6/uL (4.38-5.82); RED CELL DISTRIBUTION WIDTH 14.2 % (9.4-14.8)
[2018-10-06 05:42] LABS: ALBUMIN 3.4 g/dL (3.4-5.0); ANION GAP 7 mmol/L (5-15); CALCIUM 8.4 mg/dL (8.5-10.1); CHLORIDE 107 mmol/L (98-107)
[2018-10-06 05:46] LABS: ALANINE AMINOTRANSFERASE 57 U/L (12-78); ALKALINE PHOSPHATASE 58 U/L (45-117); BILIRUBIN,TOTAL 0.5 mg/dL (0.2-1.0); CREATININE 1.31 mg/dL (0.7-1.3); TOTAL PROTEIN 6.7 g/dL (6.4-8.2)
[2018-10-06] MEDS: SODIUM CHLORIDE 0.9% 1,000 ML IV SCH (05:47)
[2018-10-06] MEDS ORDERED: MAGNESIUM SULFATE PMX 2GM/50ML 50 ML IV ONE (06:30)
[2018-10-06] MEDS ORDERED: MAGNESIUM SULFATE PMX 2GM/50ML 50 ML ONE (06:32)
[2018-10-06] MEDS: INSULIN LISPRO 100 UNITS/ML, PEN SQ-INSULIN SCH ×4 (07:00→19:56)
[2018-10-06 08:00] VITALS: BP 113/73
[2018-10-06] MEDS: SERTRALINE 100MG TABLET PO SCH ×2 (08:46→19:55)
[2018-10-06] MEDS: FAMOTIDINE 20 MG TABLET PO SCH ×2 (08:47→19:56)
[2018-10-06] MEDS: SODIUM CHLORIDE FLUSH 10ML SYR IVF SCH ×2 (08:47→19:56)
[2018-10-06] MEDS: SENNA/DOCUSATE TABLET PO SCH (08:47)
[2018-10-06] MEDS: HYDROcodone/APAP 5/325 TABLET PO PRN ×3 (08:47→19:55)
[2018-10-06] MEDS: CARVEDILOL 3.125 MG TABLET PO SCH (08:47)
[2018-10-06] MEDS: PHENOBARBITAL 20 MG/5 ML ORAL SOL PO SCH ×2 (08:47→19:56)
[2018-10-06 13:26] VITALS: BP 119/77
[2018-10-06 19:48] VITALS: BP 126/85
[2018-10-07 01:06] VITALS: BP 110/74
[2018-10-07 05:13] LABS: BASOPHILS # (AUTO) 0.02 x10^3/uL (0-0.1); BASOPHILS % (AUTO) 1 % (0-1); EOSINOPHILS # (AUTO) 0.46 x10^3/uL (0-0.4); EOSINOPHILS % (AUTO) 9 % (1-7); LYMPHOCYTES # (AUTO) 1.84 x10^3/uL (1-3.4); LYMPHOCYTES % (AUTO) 37 % (22-44); MD NO; MEAN CORPUSCULAR HEMOGLOBIN 31.6 pg (27.5-34.5); MEAN CORPUSCULAR HGB CONC 33.4 g/dL (33.2-36.2); MEAN CORPUSCULAR VOLUME 94.7 fL (81-97); MEAN PLATELET VOLUME 8.1 fL (7.4-10.4); MONOCYTES # (AUTO) 0.55 x10^3/uL (0.2-0.8); MONOCYTES % (AUTO) 11 % (2-9); NEUTROPHILS # (AUTO) 2.15 x10^3/uL (1.8-6.8); NEUTROPHILS % (AUTO) 43 % (42-75); PLATELET COUNT 255 x10^3/uL (130-400); RED BLOOD COUNT 3.95 x10^6/uL (4.38-5.82); RED CELL DISTRIBUTION WIDTH 14.5 % (9.4-14.8)
[2018-10-07 06:11] LABS: ALBUMIN 3.3 g/dL (3.4-5.0); ANION GAP 6 mmol/L (5-15); CALCIUM 8.5 mg/dL (8.5-10.1); CHLORIDE 105 mmol/L (98-107); CREATININE 1.08 mg/dL (0.7-1.3)
[2018-10-07] MEDS: INSULIN LISPRO 100 UNITS/ML, PEN SQ-INSULIN SCH ×2 (07:00→11:00)
[2018-10-07] MEDS: HYDROcodone/APAP 5/325 TABLET PO PRN ×2 (07:50→14:34)
[2018-10-07 08:19] LABS: HEMOGLOBIN A1C 7.4 % (4.2-6.3)
[2018-10-07 08:53] VITALS: BP 117/73
[2018-10-07] MEDS ORDERED: MAGNESIUM OXIDE 400 MG TABLET PO SCH (09:00)
[2018-10-07] MEDS: SENNA/DOCUSATE TABLET PO SCH (09:00)
[2018-10-07] MEDS: SODIUM CHLORIDE FLUSH 10ML SYR IVF SCH (09:00)
[2018-10-07] MEDS: FAMOTIDINE 20 MG TABLET PO SCH (10:16)
[2018-10-07] MEDS: SERTRALINE 100MG TABLET PO SCH (10:16)
[2018-10-07] MEDS: CARVEDILOL 3.125 MG TABLET PO SCH (10:16)
[2018-10-07] MEDS: PHENOBARBITAL 20 MG/5 ML ORAL SOL PO SCH (10:16)
[2018-10-07] MEDS ORDERED: ERGO500017 PO ×2 (12:34→12:39)
[2018-10-07] MEDS ORDERED: LINA5TAB PO ×2 (12:34→12:38)
[2018-10-07 14:30] VITALS: BP 113/73
[2018-10-08] MEDS ORDERED: PHENOBARBITAL 20 MG/5 ML ORAL SOL PO SCH (08:00)
== END 2018-10-07 16:00 | disposition home or self-care (01) | DRG 682 ==
LOC: ED 16:28 → EDIP 16:30 → CCU 22:51 → 4EST 10-04 10:47 → DCLOUNGE 10-07 15:38
PROVIDERS: ADMIT Family Medicine; ATTEND Family Medicine
DX: N17.9 Acute kidney failure, unspecified (principal); K85.20 Alcohol induced acute pancreatitis without necrosis or infection; E87.1 Hypo-osmolality and hyponatremia; E87.2 Acidosis; K92.0 Hematemesis; E11.649 Type 2 diabetes mellitus with hypoglycemia without coma; D64.9 Anemia, unspecified; E11.65 Type 2 diabetes mellitus with hyperglycemia; E78.00 Pure hypercholesterolemia, unspecified; E83.51 Hypocalcemia; E86.0 Dehydration; E87.6 Hypokalemia; E87.8 Other disorders of electrolyte and fluid balance, not elsewhere classified; F12.90 Cannabis use, unspecified, uncomplicated; F31.9 Bipolar disorder, unspecified; F41.9 Anxiety disorder, unspecified; I11.0 Hypertensive heart disease with heart failure; T50.2X5A Adverse effect of carbonic-anhydrase inhibitors, benzothiadiazides and other diuretics, initial encounter; R58 Hemorrhage, not elsewhere classified; Y90.9 Presence of alcohol in blood, level not specified; F10.129 Alcohol abuse with intoxication, unspecified; S20.211A Contusion of right front wall of thorax, initial encounter; T44.5X5A Adverse effect of predominantly beta-adrenoreceptor agonists, initial encounter; W18.30XA Fall on same level, unspecified, initial encounter; I50.9 Heart failure, unspecified; K29.20 Alcoholic gastritis without bleeding; R29.6 Repeated falls; Z72.0 Tobacco use; Z79.4 Long term (current) use of insulin; Z82.49 Family history of ischemic heart disease and other diseases of the circulatory system; Z83.3 Family history of diabetes mellitus; Z91.81 History of falling; Z23 Encounter for immunization; Y93.89 Activity, other specified; Y92.098 Other place in other non-institutional residence as the place of occurrence of the external cause; Y99.8 Other external cause status; Z79.899 Other long term (current) drug therapy; Z79.84 Long term (current) use of oral hypoglycemic drugs; Z90.89 Acquired absence of other organs; Z88.0 Allergy status to penicillin
CPT/HCPCS: 36415; 71101; 99285; J7042; 76770; 80048; 80053; 80069; 80307; 81001; 82306; 82570; 82728; 82962; 83036; 83540; 83550; 83690; 83735; 83930; 83935; 83970; 84100; 84300; 84550; 84600; 85025; 87081; 87086; 90732; 93005; 96365; 96366; 96368; 96375; 96376; G0378; J1815; J2405; J2560; J3411; J3480; J7070; J3475; J7030; J7050; Q0177

== ENCOUNTER 2018-10-27 11:37 | Emergency (ER) | payer MEDICAID ==
[~2018-10-27] VITALS: Ht 172.7 cm; Wt 86.6 kg
[2018-10-27 15:39] VITALS: BP 121/71
== END 2018-10-27 15:42 | disposition home or self-care (01) ==
LOC: ED 12:19
DX: F10.220 Alcohol dependence with intoxication, uncomplicated (principal); E78.00 Pure hypercholesterolemia, unspecified; I10 Essential (primary) hypertension; E11.9 Type 2 diabetes mellitus without complications; R11.10 Vomiting, unspecified
CPT/HCPCS: 36415; 71045; 80053; 80307; 83690; 85025; 93005; 96361; 96374; 99284; J2060; J7030

== ENCOUNTER 2019-02-10 21:06 | Emergency (ER) | payer MEDICAID ==
[~2019-02-10] VITALS: Ht 172.7 cm; Wt 87.1 kg
[~2019-02-10 21:06] MED LIST changes: +ERGO500017 PO; +GLIM1TAB3 PO; +LINA5TAB PO
[2019-02-10] MEDS ORDERED: SODIUM CHLORIDE 0.9% 1,000 ML IV ONE (21:22)
[2019-02-10] MEDS ORDERED: THIAMINE 100 MG in SODIUM CHLORIDE 0.9% 50 ML IVPB ONE (21:30)
[2019-02-10] MEDS ORDERED: SODIUM CHLORIDE FLUSH 10ML SYR IVF ONE (21:30)
[2019-02-10] MEDS ORDERED: ONDANSETRON 2MG/ML, 2ML IVPush ONE (21:30)
[2019-02-10] MEDS ORDERED: SODIUM CHLORIDE 0.9% 1,000ML IVBOLUS ONE (21:30)
[2019-02-10 21:41] LABS: BASOPHILS # (AUTO) 0.03 x10^3/uL (0-0.1); BASOPHILS % (AUTO) 1 % (0-1); EOSINOPHILS # (AUTO) 0.14 x10^3/uL (0-0.4); EOSINOPHILS % (AUTO) 3 % (1-7); LYMPHOCYTES # (AUTO) 1.64 x10^3/uL (1-3.4); LYMPHOCYTES % (AUTO) 31 % (22-44); MD NO; MEAN CORPUSCULAR HEMOGLOBIN 28.7 pg (27.5-34.5); MEAN CORPUSCULAR HGB CONC 32.8 g/dL (33.2-36.2); MEAN CORPUSCULAR VOLUME 87.5 fL (81-97); MEAN PLATELET VOLUME 7.8 fL (7.4-10.4); MONOCYTES # (AUTO) 0.45 x10^3/uL (0.2-0.8); MONOCYTES % (AUTO) 9 % (2-9); NEUTROPHILS # (AUTO) 3.02 x10^3/uL (1.8-6.8); NEUTROPHILS % (AUTO) 57 % (42-75); PLATELET COUNT 163 x10^3/uL (130-400); RED BLOOD COUNT 6.27 x10^6/uL (4.38-5.82)
[2019-02-10] MEDS ORDERED: LORazepam 2 MG/ML, 1ML ONE ×2 (21:41→23:08)
[2019-02-10] MEDS ORDERED: ONDANSETRON 2MG/ML, 2ML ONE (21:41)
[2019-02-10] MEDS: LORazepam 2 MG/ML, 1ML IVPush PRN ×2 (21:46→23:18)
[2019-02-10 21:49] LABS: ALANINE AMINOTRANSFERASE 249 U/L (12-78); ANION GAP 13 mmol/L (5-15); CALCIUM 8.2 mg/dL (8.5-10.1); CHLORIDE 104 mmol/L (98-107); CREATININE 0.98 mg/dL (0.7-1.3)
[2019-02-10 21:52] LABS: ALKALINE PHOSPHATASE 111 U/L (45-117); BILIRUBIN,TOTAL 0.7 mg/dL (0.2-1.0); TOTAL PROTEIN 7.7 g/dL (6.4-8.2)
--- NOTE | 2019-02-10 22:57 | NUR ---
PT GIRLFRIEND MAURICIO [phone]
[2019-02-10] MEDS ORDERED: ACETAMINOPHEN 325 MG TABLET PO ONE (23:00)
[2019-02-10] MEDS ORDERED: ACETAMINOPHEN 325 MG TABLET ONE (23:08)
--- NOTE | 2019-02-10 23:23 | NUR ---
PT MEDICATED WITH ATIVAN, NS AGAIN. LIGHTS TURNED DOWN AND BLANKET PROVIDED FOR COMFORT.
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
[2019-02-11 00:28] VITALS: BP 136/84
--- NOTE | 2019-02-11 01:00 | NUR ---
Pt increasing more agitated and not able to be redirected. Pt states he would like to go home and refusing to sign ama. Iv d/c and pt amb w/ steady gait. A+ox4.
[2019-02-11] MEDS ORDERED: BUSP10TA PO (08:11)
[2019-02-11] MEDS ORDERED: GABA-827 PO (08:11)
[2019-02-11] MEDS ORDERED: ATOR-2 PO (08:12)
[2019-02-11] MEDS ORDERED: QUET50TA PO (08:12)
[2019-02-11] MEDS ORDERED: TRAZ50TA66 PO (08:13)
== END 2019-02-11 01:06 | disposition home or self-care (01) ==
LOC: ED 22:00
DX: F10.120 Alcohol abuse with intoxication, uncomplicated (principal); R11.2 Nausea with vomiting, unspecified; I10 Essential (primary) hypertension; E11.9 Type 2 diabetes mellitus without complications; E78.00 Pure hypercholesterolemia, unspecified; Y90.0 Blood alcohol level of less than 20 mg/100 ml
CPT/HCPCS: 36415; 80053; 80307; 83690; 85025; 96361; 96365; 96375; 96376; 99283; J2060; J2405; J3411; J7030

== ENCOUNTER 2019-02-11 07:47 | Inpatient (IN) | payer MEDICAID ==
[~2019-02-11] VITALS: Ht 172.7 cm; Wt 86.9 kg
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
--- NOTE | 2019-02-11 07:55 | NUR ---
Pt denies SI or SA or HI or C[place]RDE[place]S today.
--- NOTE | 2019-02-11 08:06 | NUR ---
PATIENT PRESENTS TO ED TODAY FOR BILAT FLANK PAIN X 2 WEEKS WITH NAUSEA, DENIES V/D. SEEN YESTERDAY FOR DETOX, PATIENT LEFT AMA LAST NIGHT, SIG OTHER AT BEDSIDE, AWAITING MD ORDERS, CALL LIGHT WITHIN REACH.
[2019-02-11] MEDS ORDERED: GABA-827 PO (08:11)
[2019-02-11] MEDS ORDERED: BUSP10TA PO (08:11)
[2019-02-11] MEDS ORDERED: QUET50TA PO (08:12)
[2019-02-11] MEDS ORDERED: ATOR-2 PO (08:12)
[2019-02-11] MEDS ORDERED: TRAZ50TA66 PO (08:13)
[2019-02-11] MEDS ORDERED: LORazepam 1MG TABLET PO ONE (09:00)
[2019-02-11 09:17] LABS: BASOPHILS # (AUTO) 0.01 x10^3/uL (0-0.1); BASOPHILS % (AUTO) 0 % (0-1); EOSINOPHILS % (AUTO) 2 % (1-7); LYMPHOCYTES # (AUTO) 1.08 x10^3/uL (1-3.4); LYMPHOCYTES % (AUTO) 23 % (22-44); MD NO; MEAN CORPUSCULAR HEMOGLOBIN 28.8 pg (27.5-34.5); MEAN CORPUSCULAR HGB CONC 33.5 g/dL (33.2-36.2); MEAN CORPUSCULAR VOLUME 85.8 fL (81-97); MEAN PLATELET VOLUME 7.2 fL (7.4-10.4); MONOCYTES # (AUTO) 0.46 x10^3/uL (0.2-0.8); MONOCYTES % (AUTO) 10 % (2-9); NEUTROPHILS # (AUTO) 3.07 x10^3/uL (1.8-6.8); NEUTROPHILS % (AUTO) 65 % (42-75); PLATELET COUNT 135 x10^3/uL (130-400); RED CELL DISTRIBUTION WIDTH 17.7 % (9.4-14.8)
[2019-02-11 09:30] LABS: ALBUMIN 3.8 g/dL (3.4-5.0); ANION GAP 11 mmol/L (5-15); CALCIUM 7.7 mg/dL (8.5-10.1); CHLORIDE 106 mmol/L (98-107)
[2019-02-11] MEDS ORDERED: THIAMINE 100MG TABLET PO ONE (09:30)
[2019-02-11 09:33] LABS: ALANINE AMINOTRANSFERASE 225 U/L (12-78); ALKALINE PHOSPHATASE 91 U/L (45-117); BILIRUBIN,TOTAL 1.4 mg/dL (0.2-1.0); CREATININE 0.76 mg/dL (0.7-1.3)
[2019-02-11] MEDS ORDERED: LORazepam 1MG TABLET ONE (09:33)
[2019-02-11] MEDS ORDERED: THIAMINE 100MG TABLET ONE (09:33)
--- NOTE | 2019-02-11 09:37 | NUR ---
PMEDICATIONS ADMINISTERED PER ORDER, PATIENT SITTING IN [facility]. REPORTS SIG OTHER TO DRIVE PATIENT HOME IF DC'D TODAY. VS UPDATED IN CHART, AWAITING LAB RESULTS.
--- NOTE | 2019-02-11 10:16 | NUR ---
RESULTS BACK, CHART UP FOR RECHECK. AWAITING FURTHER ORDERS.
--- NOTE | 2019-02-11 10:42 | NUR ---
PATIENT TO BE ADMITTED, PATIENT AWARE, A+OX4, NADN. IV TO BE ESATBLISHED, ADMIT ORDER IN, AWAITING BED ASSIGNMENT, NO NEEDS AT THIS TIME.
--- NOTE | 2019-02-11 10:56 | NUR ---
SIG OTHER (MAURICIO MANZO) PHONE NUMBER- .
--- NOTE | 2019-02-11 11:13 | NUR ---
IV ESTABLISHED, VS UPDATED IN CHART, PATIENT SITTING IN GURNEY, RESP EVEN/UNLABORED. AWAITING BED ASSIGNMENT.
--- NOTE | 2019-02-11 12:12 | NUR ---
PATIENT 87% RA WHILE SLEEPING 2L SUPPLEMENTAL O2 APPLIED, NOW 98% 2L NC. REPORT TO JULIA CRUZ. PATIENT BEING TRANSPORTED/ADMITTED TO HOSPITAL BED UPSTAIRS AT THIS TIME.
[2019-02-11] MEDS ORDERED: SODIUM CHLORIDE 0.9% 1,000 ML IV SCH (12:14)
[2019-02-11] MEDS ORDERED: ONDANSETRON 2MG/ML, 2ML IVPush PRN (12:30)
[2019-02-11] MEDS: LORazepam 2 MG/ML, 1ML IVPush PRN ×2 (12:52→18:29)
[2019-02-11 13:17] VITALS: BP 153/88
[2019-02-11 13:23] VITALS: BP 153/88
[2019-02-11] MEDS: POTASSIUM CHLORIDE 20 MEQ, MAGNESIUM SULFATE 1 GM, THIAMINE 200 MG, FOLIC ACID 1 MG, MV... IV SCH (13:48)
[2019-02-11] MEDS: morphine SULFATE 10 MG/ML, 1ML IVPush PRN ×2 (14:13→23:17)
[2019-02-11] MEDS: INSULIN LISPRO 100 UNITS/ML, PEN SQ-INSULIN SCH ×2 (16:00→21:00)
[2019-02-11] MEDS: HALOPERIDOL 5 MG/ML IM PRN ×2 (16:24→21:36)
[2019-02-11 19:44] VITALS: BP 147/82
[2019-02-11] MEDS: PANTOPRAZOLE 40 MG IV IVPush SCH (21:35)
[2019-02-12 01:25] VITALS: BP 148/91
[2019-02-12] MEDS: LORazepam 2 MG/ML, 1ML IVPush PRN ×3 (01:25→10:27)
[2019-02-12] MEDS: morphine SULFATE 10 MG/ML, 1ML IVPush PRN ×2 (03:11→18:36)
[2019-02-12] MEDS: HALOPERIDOL 5 MG/ML IM PRN (04:59)
[2019-02-12 06:21] LABS: BASOPHILS # (AUTO) 0.02 x10^3/uL (0-0.1); BASOPHILS % (AUTO) 0 % (0-1); EOSINOPHILS # (AUTO) 0.15 x10^3/uL (0-0.4); EOSINOPHILS % (AUTO) 2 % (1-7); LYMPHOCYTES % (AUTO) 15 % (22-44); MD NO; MEAN CORPUSCULAR HEMOGLOBIN 28.8 pg (27.5-34.5); MEAN CORPUSCULAR HGB CONC 32.7 g/dL (33.2-36.2); MEAN CORPUSCULAR VOLUME 88.1 fL (81-97); MEAN PLATELET VOLUME 7.9 fL (7.4-10.4); MONOCYTES # (AUTO) 0.49 x10^3/uL (0.2-0.8); MONOCYTES % (AUTO) 7 % (2-9); NEUTROPHILS # (AUTO) 5.01 x10^3/uL (1.8-6.8); NEUTROPHILS % (AUTO) 75 % (42-75); PLATELET COUNT 123 x10^3/uL (130-400); RED BLOOD COUNT 5.39 x10^6/uL (4.38-5.82); RED CELL DISTRIBUTION WIDTH 18.3 % (9.4-14.8)
[2019-02-12 06:31] LABS: ALBUMIN 3.9 g/dL (3.4-5.0); ANION GAP 9 mmol/L (5-15); CALCIUM 8.1 mg/dL (8.5-10.1); CHLORIDE 102 mmol/L (98-107)
[2019-02-12 06:36] LABS: ALANINE AMINOTRANSFERASE 188 U/L (12-78); ALKALINE PHOSPHATASE 92 U/L (45-117); BILIRUBIN,TOTAL 2.6 mg/dL (0.2-1.0); CREATININE 0.74 mg/dL (0.7-1.3); TOTAL PROTEIN 7.1 g/dL (6.4-8.2)
[2019-02-12 06:47] LABS: HEMOGLOBIN A1C 6.5 % (4.2-6.3)
[2019-02-12 06:59] VITALS: BP 148/92
[2019-02-12] MEDS: INSULIN LISPRO 100 UNITS/ML, PEN SQ-INSULIN SCH ×4 (07:00→19:57)
[2019-02-12] MEDS: PANTOPRAZOLE 40 MG IV IVPush SCH (10:07)
[2019-02-12] MEDS: SODIUM CHLORIDE 0.9% 1,000 ML IV SCH (10:26)
[2019-02-12 13:17] VITALS: BP 143/88
[2019-02-12 13:49] LABS: INTERNATIONAL NORMALIZED RATIO 0.99 (0.93-1.1); PROTHROMBIN TIME 10.4 Seconds (9.6-11.5)
[2019-02-12] MEDS: HEPARIN 5,000 UNITS/ML, 1ML SQ SCH ×2 (13:51→20:57)
[2019-02-12] MEDS: CHLORDIAZEPOXIDE 10 MG CAPSULE PO SCH ×3 (13:52→19:56)
[2019-02-12] MEDS: POTASSIUM CHLORIDE 20 MEQ, MAGNESIUM SULFATE 1 GM, THIAMINE 200 MG, FOLIC ACID 1 MG, MV... IV SCH (13:52)
[2019-02-12] MEDS: LORazepam 2 MG/ML, 1ML IV PRN ×2 (16:25→20:57)
[2019-02-12 18:10] VITALS: BP 163/95
[2019-02-12 19:33] VITALS: BP 154/89
[2019-02-12] MEDS: PANTOPROZOLE 40MG TABLET PO SCH (19:56)
[2019-02-12] MEDS ORDERED: TRAZODONE 150MG TABLET PO ONE (23:30)
[2019-02-13] MEDS: morphine SULFATE 10 MG/ML, 1ML IVPush PRN ×2 (00:57→06:06)
[2019-02-13] MEDS: SODIUM CHLORIDE 0.9% 1,000 ML IV SCH ×2 (01:02→08:00)
[2019-02-13 01:28] VITALS: BP 150/94
[2019-02-13] MEDS: LORazepam 2 MG/ML, 1ML IV PRN ×2 (02:34→08:00)
[2019-02-13] MEDS: PANTOPROZOLE 40MG TABLET PO SCH ×2 (05:58→16:10)
[2019-02-13] MEDS: HEPARIN 5,000 UNITS/ML, 1ML SQ SCH ×3 (05:58→20:40)
[2019-02-13 06:10] LABS: ALBUMIN 3.9 g/dL (3.4-5.0); ANION GAP 9 mmol/L (5-15); CALCIUM 8.2 mg/dL (8.5-10.1); CHLORIDE 103 mmol/L (98-107)
[2019-02-13 06:15] LABS: ALANINE AMINOTRANSFERASE 154 U/L (12-78); ALKALINE PHOSPHATASE 92 U/L (45-117); BILIRUBIN,TOTAL 1.4 mg/dL (0.2-1.0); CREATININE 0.63 mg/dL (0.7-1.3); TOTAL PROTEIN 7.1 g/dL (6.4-8.2)
[2019-02-13] MEDS: INSULIN LISPRO 100 UNITS/ML, PEN SQ-INSULIN SCH ×4 (07:00→20:41)
[2019-02-13 07:36] VITALS: BP 150/90
[2019-02-13] MEDS ORDERED: POTASSIUM CHLORIDE 40 MEQ in SODIUM CHLORIDE 0.9% 500 ML IV ONE (08:00)
[2019-02-13] MEDS: FOLIC ACID 1 MG TABLET PO SCH (08:29)
[2019-02-13] MEDS: BUSPIRONE 10 MG TABLET PO SCH ×3 (08:29→20:41)
[2019-02-13] MEDS: THIAMINE 100MG TABLET PO SCH (08:29)
[2019-02-13] MEDS: SERTRALINE 100MG TABLET PO SCH ×2 (08:29→20:41)
[2019-02-13] MEDS: CHLORDIAZEPOXIDE 25 MG CAPSULE PO SCH ×4 (09:01→20:41)
[2019-02-13 13:55] VITALS: BP 164/113
[2019-02-13] MEDS: hydrOXyzine 10 MG/5 ML ORAL SOL PO PRN ×3 (18:27→23:21)
[2019-02-13 19:21] VITALS: BP 150/100
[2019-02-13] MEDS ORDERED: ATORVASTATIN 80 MG TABLET PO SCH (21:00)
[2019-02-13 21:17] VITALS: BP 162/111
[2019-02-13] MEDS: hydrALAzine 20 MG/ML, 1ML IVPush PRN (21:17)
[2019-02-13] MEDS ORDERED: TEMAZEPAM 15 MG CAPSULE PO ONE (23:55)
[2019-02-14] MEDS ORDERED: CALCIUM CARBONATE 500 MG TAB.CHEW PO PRN
[2019-02-14 01:48] VITALS: BP 154/104
[2019-02-14] MEDS: hydrALAzine 20 MG/ML, 1ML IVPush PRN (01:54)
[2019-02-14 04:11] VITALS: BP 159/96
[2019-02-14] MEDS: CHLORDIAZEPOXIDE 25 MG CAPSULE PO SCH ×3 (05:19→15:16)
[2019-02-14] MEDS: HEPARIN 5,000 UNITS/ML, 1ML SQ SCH ×2 (05:20→14:58)
[2019-02-14] MEDS: PANTOPROZOLE 40MG TABLET PO SCH (05:29)
[2019-02-14] MEDS: FOLIC ACID 1 MG TABLET PO SCH (08:04)
[2019-02-14] MEDS: SERTRALINE 100MG TABLET PO SCH (08:04)
[2019-02-14] MEDS: THIAMINE 100MG TABLET PO SCH (08:04)
[2019-02-14] MEDS: BUSPIRONE 10 MG TABLET PO SCH ×2 (08:04→15:16)
[2019-02-14 08:05] VITALS: BP 158/115
[2019-02-14] MEDS: INSULIN LISPRO 100 UNITS/ML, PEN SQ-INSULIN SCH ×2 (08:05→11:32)
[2019-02-14] MEDS ORDERED: IBUPROFEN 600 MG TABLET PO PRN (10:30)
[2019-02-14 11:21] VITALS: BP 135/95
[2019-02-14] MEDS ORDERED: THIA100T67 PO (11:44)
[2019-02-14] MEDS ORDERED: NALT50TA PO (11:44)
[2019-02-14] MEDS ORDERED: HYDR10SY15 PO (11:44)
[2019-02-14] MEDS ORDERED: FOLI-17 PO (11:44)
[2019-02-14] MEDS ORDERED: CHLO25CA9 PO (11:44)
[2019-02-14 13:09] VITALS: BP 147/97
== END 2019-02-14 16:22 | disposition home or self-care (01) | DRG 438 ==
LOC: ED 07:53 → EDIP 10:32 → 3N 12:19 → DCLOUNGE 02-14 16:15
PROVIDERS: ADMIT Family Medicine; ATTEND Internal Medicine
DX: K85.20 Alcohol induced acute pancreatitis without necrosis or infection (principal); J96.00 Acute respiratory failure, unspecified whether with hypoxia or hypercapnia; F10.239 Alcohol dependence with withdrawal, unspecified; I50.32 Chronic diastolic (congestive) heart failure; E11.9 Type 2 diabetes mellitus without complications; E55.9 Vitamin D deficiency, unspecified; E78.00 Pure hypercholesterolemia, unspecified; Z88.0 Allergy status to penicillin; F31.9 Bipolar disorder, unspecified; F41.1 Generalized anxiety disorder; I11.0 Hypertensive heart disease with heart failure; K70.10 Alcoholic hepatitis without ascites; Y90.8 Blood alcohol level of 240 mg/100 ml or more; Z72.0 Tobacco use; Z82.49 Family history of ischemic heart disease and other diseases of the circulatory system
CPT/HCPCS: 36415; 71045; 80053; 82962; 83036; 83690; 83735; 84100; 85025; 85610; 93005; 99285; G0378; J1644; J2405; J3411; J3475; J3480; C9113; J0360; J1630; J1815; J2060; J2270; J7030; Q0177

== ENCOUNTER 2019-04-19 12:50 | Inpatient (IN) | payer MEDICAID ==
[~2019-04-19] VITALS: Ht 172.7 cm; Wt 89.6 kg
[~2019-04-19 12:50] MED LIST changes: +BUSP10TA PO; +CHLO25CA9 PO; +FOLI-17 PO; +GABA-827 PO; +HYDR10SY15 PO; +NALT50TA PO; +QUET50TA PO; +THIA100T67 PO; +TRAZ50TA66 PO
[2019-04-19] MEDS ORDERED: SODIUM CHLORIDE 0.9% 1,000ML IVBOLUS ONE (13:30)
[2019-04-19] MEDS ORDERED: SODIUM CHLORIDE FLUSH 10ML SYR IVF ONE (13:30)
[2019-04-19] MEDS ORDERED: ONDANSETRON 2MG/ML, 2ML IVPush ONE (13:30)
[2019-04-19] MEDS ORDERED: FAMOTIDINE 20 MG/2 ML IV ONE (13:30)
[2019-04-19] MEDS ORDERED: HYDROmorphone 2 MG/ML, 1ML IVPush PRN (13:30)
[2019-04-19] MEDS ORDERED: ONDANSETRON 2MG/ML, 2ML ONE (13:35)
[2019-04-19] MEDS ORDERED: FAMOTIDINE 20 MG/2 ML ONE (13:35)
[2019-04-19] MEDS ORDERED: HYDROmorphone 1 MG/ML, 1ML INJ ONE ×2 (13:35→17:58)
[2019-04-19 13:50] LABS: BASOPHILS # (AUTO) 0.02 x10^3/uL (0-0.1); BASOPHILS % (AUTO) 0 % (0-1); EOSINOPHILS # (AUTO) 0.11 x10^3/uL (0-0.4); EOSINOPHILS % (AUTO) 1 % (1-7); LYMPHOCYTES # (AUTO) 1.77 x10^3/uL (1-3.4); LYMPHOCYTES % (AUTO) 13 % (22-44); MD NO; MEAN CORPUSCULAR HEMOGLOBIN 29.3 pg (27.5-34.5); MEAN CORPUSCULAR HGB CONC 33.7 g/dL (33.2-36.2); MEAN CORPUSCULAR VOLUME 86.9 fL (81-97); MEAN PLATELET VOLUME 7.4 fL (7.4-10.4); MONOCYTES # (AUTO) 0.84 x10^3/uL (0.2-0.8); MONOCYTES % (AUTO) 6 % (2-9); NEUTROPHILS # (AUTO) 10.72 x10^3/uL (1.8-6.8); NEUTROPHILS % (AUTO) 80 % (42-75); PLATELET COUNT 321 x10^3/uL (130-400); RED CELL DISTRIBUTION WIDTH 14.8 % (9.4-14.8)
[2019-04-19 13:57] LABS: CULTURE INDICATED? YES; MICROSCOPIC INDICATED
[2019-04-19 14:42] LABS: ALANINE AMINOTRANSFERASE 81 U/L (12-78); ALBUMIN 4.1 g/dL (3.4-5.0); ANION GAP 11 mmol/L (5-15); CALCIUM 8.7 mg/dL (8.5-10.1); CHLORIDE 102 mmol/L (98-107); CREATININE 1.27 mg/dL (0.7-1.3)
[2019-04-19 14:46] LABS: ALKALINE PHOSPHATASE 82 U/L (45-117); BILIRUBIN,TOTAL 2.9 mg/dL (0.2-1.0); TOTAL PROTEIN 7.4 g/dL (6.4-8.2)
--- NOTE | 2019-04-19 14:50 | NUR ---
PT RESTING IN BED, CALL LIGHT IN REACH
[2019-04-19] MEDS ORDERED: SODIUM CHLORIDE 0.9% 1,000 ML IV ONE (15:26)
[2019-04-19] MEDS ORDERED: MAGNESIUM SULFATE PMX 2GM/50ML 50 ML IV ONE (15:30)
[2019-04-19] MEDS ORDERED: LORazepam 2 MG/ML, 1ML IVPush PRN (15:30)
[2019-04-19] MEDS ORDERED: ONDANSETRON 2MG/ML, 2ML IVPush PRN (15:30)
[2019-04-19] MEDS ORDERED: HYDROmorphone 1 MG/ML, 1ML INJ IVPush PRN (15:30)
[2019-04-19] MEDS ORDERED: SODIUM CHLORIDE FLUSH 10ML SYR IVF PRN (15:30)
[2019-04-19] MEDS ORDERED: MAGNESIUM SULFATE PMX 2GM/50ML 50 ML ONE (15:33)
--- NOTE | 2019-04-19 15:44 | NUR ---
NATE KESSLER AT BEDSIDE FOR EVALUATION
[2019-04-19] MEDS ORDERED: POLYETHYLENE GLYCOL 17 GM PACKET PO PRN (16:30)
[2019-04-19] MEDS ORDERED: DEXTROSE 4 GM TAB.CHEW PO PRN (16:30)
[2019-04-19] MEDS ORDERED: METOCLOPRAMIDE 5 MG/ML, 2ML IVPush PRN ×2 (16:30)
[2019-04-19] MEDS ORDERED: DOCUSATE 100 MG CAPSULE PO PRN (16:30)
[2019-04-19] MEDS ORDERED: FOLIC ACID 5 MG/ML IM ONE ×2 (16:30→18:00)
[2019-04-19] MEDS ORDERED: GLUCAGON 1 MG IM PRN (16:30)
[2019-04-19] MEDS ORDERED: DEXTROSE 50%, 50ML SYRINGE IVPush PRN (16:30)
[2019-04-19] MEDS ORDERED: THIAMINE 200 MG, FOLIC ACID 1 MG in DEXTROSE 5% 50 ML IVPB ONE (16:30)
[2019-04-19] MEDS ORDERED: LORazepam 2 MG/ML, 1ML IV PRN ×3 (16:30)
[2019-04-19] MEDS ORDERED: HEPARIN 5,000 UNITS/ML, 1ML ONE (16:47)
[2019-04-19] MEDS ORDERED: NICOTINE 7 MG/24 HR PATCH.TD24 ONE (16:47)
[2019-04-19] MEDS: NICOTINE 7 MG/24 HR PATCH.TD24 TD SCH (16:53)
[2019-04-19] MEDS: HEPARIN 5,000 UNITS/ML, 1ML SQ SCH (16:53)
[2019-04-19] MEDS ORDERED: METOCLOPRAMIDE 5 MG/ML, 2ML ONE (17:00)
[2019-04-19] MEDS ORDERED: LORazepam 2 MG/ML, 1ML ONE (17:00)
--- NOTE | 2019-04-19 17:00 | NUR ---
PT RESTING IN BED. MEDICATIONS REQUESTED FROM PHARMACY
[2019-04-19] MEDS: LORazepam 2 MG/ML, 1ML IV PRN (17:03)
[2019-04-19] MEDS ORDERED: THIAMINE 200 MG in DEXTROSE 5% 50 ML IVPB ONE (18:00)
[2019-04-19] MEDS: D5%-0.45% NACL 1,000 ML IV SCH ×2 (21:05→22:07)
[2019-04-19 21:07] VITALS: BP 161/87
[2019-04-19] MEDS: ONDANSETRON 2MG/ML, 2ML IVPush PRN (21:48)
[2019-04-19] MEDS: BUSPIRONE 10 MG TABLET PO SCH (21:48)
[2019-04-19] MEDS: TRAZODONE 150MG TABLET PO SCH (21:49)
[2019-04-19] MEDS: ATORVASTATIN 80 MG TABLET PO SCH (21:49)
[2019-04-19] MEDS: GABAPENTIN 400 MG CAPSULE PO SCH (21:49)
[2019-04-19] MEDS: SERTRALINE 100MG TABLET PO SCH (21:49)
[2019-04-19] MEDS: SODIUM CHLORIDE FLUSH 10ML SYR IVF SCH (21:49)
[2019-04-19] MEDS: MORPHINE SULFATE 4 MG/ML, 1ML IVPush PRN (22:06)
[2019-04-19] MEDS: INSULIN LISPRO 100 UNITS/ML, PEN SQ-INSULIN SCH (22:07)
[2019-04-19 22:13] VITALS: BP 161/87
[2019-04-20 00:47] VITALS: BP 140/82
[2019-04-20] MEDS: HEPARIN 5,000 UNITS/ML, 1ML SQ SCH ×3 (02:12→18:26)
[2019-04-20] MEDS: MORPHINE SULFATE 4 MG/ML, 1ML IVPush PRN ×2 (02:13→05:32)
[2019-04-20] MEDS: LORazepam 2 MG/ML, 1ML IV PRN ×4 (02:14→20:30)
[2019-04-20] MEDS: D5%-0.45% NACL 1,000 ML IV SCH (03:47)
[2019-04-20] MEDS: ONDANSETRON 2MG/ML, 2ML IVPush PRN ×4 (05:32→22:50)
[2019-04-20] MEDS ORDERED: KETOROLAC 30 MG/1 ML IM PRN (06:30)
[2019-04-20 06:46] LABS: BASOPHILS # (AUTO) 0.06 x10^3/uL (0-0.1); BASOPHILS % (AUTO) 1 % (0-1); EOSINOPHILS # (AUTO) 0.19 x10^3/uL (0-0.4); EOSINOPHILS % (AUTO) 2 % (1-7); LYMPHOCYTES # (AUTO) 1.43 x10^3/uL (1-3.4); LYMPHOCYTES % (AUTO) 17 % (22-44); MD NO; MEAN CORPUSCULAR HEMOGLOBIN 29.1 pg (27.5-34.5); MEAN CORPUSCULAR HGB CONC 33.7 g/dL (33.2-36.2); MEAN CORPUSCULAR VOLUME 86.4 fL (81-97); MEAN PLATELET VOLUME 7.6 fL (7.4-10.4); MONOCYTES # (AUTO) 0.68 x10^3/uL (0.2-0.8); MONOCYTES % (AUTO) 8 % (2-9); NEUTROPHILS # (AUTO) 6.17 x10^3/uL (1.8-6.8); NEUTROPHILS % (AUTO) 72 % (42-75); PLATELET COUNT 234 x10^3/uL (130-400); RED BLOOD COUNT 5.03 x10^6/uL (4.38-5.82); RED CELL DISTRIBUTION WIDTH 14.6 % (9.4-14.8)
[2019-04-20 06:57] LABS: ALANINE AMINOTRANSFERASE 53 U/L (12-78); ALBUMIN 3.4 g/dL (3.4-5.0); ANION GAP 6 mmol/L (5-15); CALCIUM 7.7 mg/dL (8.5-10.1); CHLORIDE 107 mmol/L (98-107); CREATININE 0.94 mg/dL (0.7-1.3)
[2019-04-20 06:59] LABS: ALKALINE PHOSPHATASE 67 U/L (45-117); BILIRUBIN,TOTAL 3.1 mg/dL (0.2-1.0); TOTAL PROTEIN 6.1 g/dL (6.4-8.2)
[2019-04-20 07:51] VITALS: BP 160/95
[2019-04-20] MEDS: BUSPIRONE 10 MG TABLET PO SCH ×3 (08:08→20:19)
[2019-04-20] MEDS: INSULIN LISPRO 100 UNITS/ML, PEN SQ-INSULIN SCH ×4 (08:08→20:23)
[2019-04-20] MEDS: SERTRALINE 100MG TABLET PO SCH ×2 (08:08→20:20)
[2019-04-20] MEDS: PROPRANOLOl 80 MG CAP.SA.24H PO SCH (08:08)
[2019-04-20] MEDS: GABAPENTIN 400 MG CAPSULE PO SCH ×3 (08:08→20:20)
[2019-04-20] MEDS: LACTATED RINGERS 1,000 ML IV SCH ×3 (08:09→22:58)
[2019-04-20] MEDS: SODIUM CHLORIDE FLUSH 10ML SYR IVF SCH ×2 (08:09→20:20)
[2019-04-20] MEDS: FENTANYL PF 100 MCG/2ML IVPush PRN ×4 (09:42→22:50)
[2019-04-20 14:01] VITALS: BP 163/94
[2019-04-20] MEDS ORDERED: POTASSIUM CHLORIDE 40 MEQ in SODIUM CHLORIDE 0.9% 500 ML IV ONE ×2 (14:30→16:00)
[2019-04-20] MEDS: NICOTINE 7 MG/24 HR PATCH.TD24 TD SCH (15:41)
[2019-04-20] MEDS ORDERED: ONDANSETRON 2MG/ML, 2ML IVPush SCH (16:00)
[2019-04-20] MEDS: ATORVASTATIN 80 MG TABLET PO SCH (20:19)
[2019-04-20] MEDS: TRAZODONE 150MG TABLET PO SCH (20:20)
[2019-04-20 20:24] VITALS: BP 164/98
[2019-04-21] MEDS: LORazepam 2 MG/ML, 1ML IV PRN (01:39)
[2019-04-21] MEDS: HEPARIN 5,000 UNITS/ML, 1ML SQ SCH ×3 (01:39→18:05)
[2019-04-21] MEDS: FENTANYL PF 100 MCG/2ML IVPush PRN (03:22)
[2019-04-21] MEDS: ONDANSETRON 2MG/ML, 2ML IVPush PRN (03:23)
[2019-04-21 03:31] VITALS: BP 153/93
[2019-04-21 06:29] LABS: BASOPHILS # (AUTO) 0.03 x10^3/uL (0-0.1); BASOPHILS % (AUTO) 0 % (0-1); EOSINOPHILS # (AUTO) 0.31 x10^3/uL (0-0.4); EOSINOPHILS % (AUTO) 4 % (1-7); LYMPHOCYTES # (AUTO) 1.99 x10^3/uL (1-3.4); LYMPHOCYTES % (AUTO) 23 % (22-44); MD NO; MEAN CORPUSCULAR HEMOGLOBIN 29.6 pg (27.5-34.5); MEAN CORPUSCULAR VOLUME 86.9 fL (81-97); MEAN PLATELET VOLUME 7.5 fL (7.4-10.4); MONOCYTES % (AUTO) 7 % (2-9); NEUTROPHILS # (AUTO) 5.66 x10^3/uL (1.8-6.8); NEUTROPHILS % (AUTO) 66 % (42-75); PLATELET COUNT 209 x10^3/uL (130-400); RED BLOOD COUNT 5.03 x10^6/uL (4.38-5.82); RED CELL DISTRIBUTION WIDTH 14.1 % (9.4-14.8)
[2019-04-21 06:40] VITALS: BP 153/87
[2019-04-21 06:50] LABS: ALANINE AMINOTRANSFERASE 43 U/L (12-78); ALBUMIN 3.4 g/dL (3.4-5.0); ANION GAP 8 mmol/L (5-15); CHLORIDE 106 mmol/L (98-107); CREATININE 0.81 mg/dL (0.7-1.3)
[2019-04-21 06:52] LABS: ALKALINE PHOSPHATASE 78 U/L (45-117); BILIRUBIN,TOTAL 2.3 mg/dL (0.2-1.0); TOTAL PROTEIN 6.4 g/dL (6.4-8.2)
[2019-04-21] MEDS: INSULIN LISPRO 100 UNITS/ML, PEN SQ-INSULIN SCH ×4 (07:00→20:18)
[2019-04-21] MEDS: LACTATED RINGERS 1,000 ML IV SCH ×2 (07:17→22:45)
[2019-04-21] MEDS ORDERED: MAGNESIUM SULFATE PMX 2GM/50ML 50 ML IV ONE (07:30)
[2019-04-21] MEDS: BUSPIRONE 10 MG TABLET PO SCH ×3 (08:05→20:19)
[2019-04-21] MEDS: GABAPENTIN 400 MG CAPSULE PO SCH ×3 (08:06→20:19)
[2019-04-21] MEDS: PROPRANOLOl 80 MG CAP.SA.24H PO SCH (08:06)
[2019-04-21] MEDS: SERTRALINE 100MG TABLET PO SCH ×2 (08:06→20:19)
[2019-04-21] MEDS: SODIUM CHLORIDE FLUSH 10ML SYR IVF SCH ×2 (08:07→20:20)
[2019-04-21] MEDS ORDERED: FENTANYL PF 100 MCG/2ML IVPush PRN (09:00)
[2019-04-21] MEDS ORDERED: MAGNESIUM SULFATE/D5W 100 ML IV ONE (09:30)
[2019-04-21 12:16] VITALS: BP 136/84
[2019-04-21] MEDS ORDERED: KETOROLAC 30 MG/1 ML ONE (15:55)
[2019-04-21] MEDS: KETOROLAC 30 MG/1 ML IV PRN ×2 (16:02→22:23)
[2019-04-21] MEDS: NICOTINE 7 MG/24 HR PATCH.TD24 TD SCH (16:03)
[2019-04-21] MEDS: TRAZODONE 150MG TABLET PO SCH (20:19)
[2019-04-21] MEDS: ATORVASTATIN 80 MG TABLET PO SCH (20:19)
[2019-04-21] MEDS: hydrOXyzine 10 MG/5 ML ORAL SOL PO PRN (20:19)
[2019-04-21 20:24] VITALS: BP 168/97
[2019-04-22] VITALS (7 sets, daily range): BP systolic 155–183; BP diastolic 90–112
[2019-04-22] MEDS: ENALAPRILAT 1.25 MG/ML, 2ML IVPush PRN ×2 (02:18→20:34)
[2019-04-22] MEDS: HEPARIN 5,000 UNITS/ML, 1ML SQ SCH ×3 (02:18→17:10)
[2019-04-22] MEDS: hydrOXyzine 10 MG/5 ML ORAL SOL PO PRN ×2 (02:25→10:16)
[2019-04-22] MEDS: KETOROLAC 30 MG/1 ML IV PRN ×3 (04:35→17:14)
[2019-04-22] MEDS ORDERED: LACTATED RINGERS 1,000 ML IV SCH ×2 (06:00→23:00)
[2019-04-22 06:08] LABS: BASOPHILS # (AUTO) 0.05 x10^3/uL (0-0.1); BASOPHILS % (AUTO) 1 % (0-1); EOSINOPHILS # (AUTO) 0.51 x10^3/uL (0-0.4); EOSINOPHILS % (AUTO) 6 % (1-7); LYMPHOCYTES % (AUTO) 13 % (22-44); MD NO; MEAN CORPUSCULAR HEMOGLOBIN 29.6 pg (27.5-34.5); MEAN CORPUSCULAR HGB CONC 34.1 g/dL (33.2-36.2); MEAN CORPUSCULAR VOLUME 86.6 fL (81-97); MEAN PLATELET VOLUME 7.7 fL (7.4-10.4); MONOCYTES # (AUTO) 0.49 x10^3/uL (0.2-0.8); MONOCYTES % (AUTO) 5 % (2-9); NEUTROPHILS # (AUTO) 6.85 x10^3/uL (1.8-6.8); NEUTROPHILS % (AUTO) 75 % (42-75); PLATELET COUNT 185 x10^3/uL (130-400); RED BLOOD COUNT 4.86 x10^6/uL (4.38-5.82); RED CELL DISTRIBUTION WIDTH 14.2 % (9.4-14.8)
[2019-04-22] MEDS: LACTATED RINGERS 1,000 ML IV SCH (06:15)
[2019-04-22 06:18] LABS: CHLORIDE 109 mmol/L (98-107)
[2019-04-22 06:24] LABS: ALANINE AMINOTRANSFERASE 45 U/L (12-78); ALBUMIN 3.4 g/dL (3.4-5.0); ALKALINE PHOSPHATASE 80 U/L (45-117); ANION GAP 6 mmol/L (5-15); BILIRUBIN,TOTAL 1.2 mg/dL (0.2-1.0); CALCIUM 8.6 mg/dL (8.5-10.1); CREATININE 0.76 mg/dL (0.7-1.3); TOTAL PROTEIN 6.6 g/dL (6.4-8.2)
[2019-04-22] MEDS: INSULIN LISPRO 100 UNITS/ML, PEN SQ-INSULIN SCH ×4 (08:34→20:35)
[2019-04-22] MEDS: FOLIC ACID 1 MG TABLET PO SCH (08:58)
[2019-04-22] MEDS: PROPRANOLOl 80 MG CAP.SA.24H PO SCH (08:58)
[2019-04-22] MEDS: BUSPIRONE 10 MG TABLET PO SCH ×3 (08:58→20:34)
[2019-04-22] MEDS: GABAPENTIN 400 MG CAPSULE PO SCH ×3 (08:58→20:35)
[2019-04-22] MEDS: SERTRALINE 100MG TABLET PO SCH ×2 (08:58→20:35)
[2019-04-22] MEDS: THIAMINE 100MG TABLET PO SCH (08:59)
[2019-04-22] MEDS: SODIUM CHLORIDE FLUSH 10ML SYR IVF SCH ×2 (08:59→20:34)
[2019-04-22] MEDS: ONDANSETRON 2MG/ML, 2ML IVPush PRN (10:15)
[2019-04-22] MEDS: NICOTINE 7 MG/24 HR PATCH.TD24 TD SCH (16:13)
[2019-04-22] MEDS: LORazepam 2 MG/ML, 1ML IV PRN (20:34)
[2019-04-22] MEDS: TRAZODONE 150MG TABLET PO SCH (20:35)
[2019-04-22] MEDS: ATORVASTATIN 80 MG TABLET PO SCH (20:35)
[2019-04-23] MEDS: HEPARIN 5,000 UNITS/ML, 1ML SQ SCH ×2 (02:00→08:07)
[2019-04-23 02:57] VITALS: BP 124/79
[2019-04-23] MEDS: hydrOXyzine 10 MG/5 ML ORAL SOL PO PRN ×2 (05:51→11:48)
[2019-04-23] MEDS: KETOROLAC 30 MG/1 ML IV PRN (05:51)
[2019-04-23 06:02] LABS: ALANINE AMINOTRANSFERASE 45 U/L (12-78); ALBUMIN 3.5 g/dL (3.4-5.0); ANION GAP 5 mmol/L (5-15); CALCIUM 9.1 mg/dL (8.5-10.1); CHLORIDE 106 mmol/L (98-107)
[2019-04-23 06:04] LABS: ALKALINE PHOSPHATASE 84 U/L (45-117); BILIRUBIN,TOTAL 1.2 mg/dL (0.2-1.0)
[2019-04-23 06:43] VITALS: BP 130/81
[2019-04-23] MEDS: SERTRALINE 100MG TABLET PO SCH (08:05)
[2019-04-23] MEDS: GABAPENTIN 400 MG CAPSULE PO SCH (08:06)
[2019-04-23] MEDS: PROPRANOLOl 80 MG CAP.SA.24H PO SCH (08:06)
[2019-04-23] MEDS: FOLIC ACID 1 MG TABLET PO SCH (08:06)
[2019-04-23] MEDS: BUSPIRONE 10 MG TABLET PO SCH (08:06)
[2019-04-23] MEDS: SODIUM CHLORIDE FLUSH 10ML SYR IVF SCH (08:06)
[2019-04-23] MEDS: THIAMINE 100MG TABLET PO SCH (08:06)
[2019-04-23] MEDS: INSULIN LISPRO 100 UNITS/ML, PEN SQ-INSULIN SCH ×2 (08:07→11:47)
[2019-04-23] MEDS ORDERED: METF500T PO (11:03)
[2019-04-23 12:05] VITALS: BP 147/91
== END 2019-04-23 15:56 | disposition home or self-care (01) | DRG 439 ==
LOC: ED 15:37 → EDIP 16:16 → 4WST 20:54
PROVIDERS: ADMIT Student in an Organized Health Care Education/Training Program; ATTEND Student in an Organized Health Care Education/Training Program
DX: K85.20 Alcohol induced acute pancreatitis without necrosis or infection (principal); F10.239 Alcohol dependence with withdrawal, unspecified; E11.9 Type 2 diabetes mellitus without complications; E78.00 Pure hypercholesterolemia, unspecified; E83.42 Hypomagnesemia; E83.51 Hypocalcemia; E87.6 Hypokalemia; F19.94 Other psychoactive substance use, unspecified with psychoactive substance-induced mood disorder; H55.00 Unspecified nystagmus; I11.0 Hypertensive heart disease with heart failure; I50.9 Heart failure, unspecified; Z72.0 Tobacco use; Z79.899 Other long term (current) drug therapy; F32.9 Major depressive disorder, single episode, unspecified
CPT/HCPCS: 36415; 96365; 96375; 99285; J3490; 80053; 80307; 81001; 82962; 83605; 83690; 83735; 84100; 85025; 87086; 93005; G0378; J1170; J1644; J1885; J2405; J3010; J3411; J3480; J1815; J2060; J2270; J2765; J3475; J7030; J7040; J7120; Q0177

== ENCOUNTER 2019-07-23 12:04 | Emergency (ER) | payer MEDICAID ==
[~2019-07-23] VITALS: Ht 172.7 cm; Wt 90.0 kg
[~2019-07-23 12:04] MED LIST changes: -GLIM1TAB3 PO; +GLIM1TAB7 PO; -HYDR50TA13 PO; +HYDR50TA99 PO; +METF500T PO
--- NOTE | 2019-07-23 12:15 | NUR ---
PT BIB EMS FOR ABDOMINAL PAIN W N/V STARTING LAST NIGHT. PT STATES HE HAD TEQUILL NIGHT PRIOR AND ABDOMINAL PAIN STARTED THE FOLLOWING DAY. PT STATES HE HAD PANCREATIS IN APR AND HAS STOPPED DRINKING ALCHOL SINCE. PT GIVEN 200 IVF, 100 [address] ROUTE
[2019-07-23] MEDS ORDERED: SODIUM CHLORIDE FLUSH 10ML SYR IVF ONE (12:30)
[2019-07-23] MEDS ORDERED: SODIUM CHLORIDE 0.9% 1,000ML IVBOLUS ONE (12:30)
[2019-07-23] MEDS ORDERED: PANTOPRAZOLE 40 MG IV IVPush ONE (12:30)
[2019-07-23 12:41] LABS: MEAN CORPUSCULAR HEMOGLOBIN 29.2 pg (27.5-34.5); MEAN CORPUSCULAR VOLUME 88.6 fL (81-97); MEAN PLATELET VOLUME 7.7 fL (7.4-10.4); PLATELET COUNT 368 x10^3/uL (130-400); RED BLOOD COUNT 5.71 x10^6/uL (4.38-5.82); RED CELL DISTRIBUTION WIDTH 13.1 % (9.4-14.8)
[2019-07-23 12:52] LABS: ALANINE AMINOTRANSFERASE 56 U/L (12-78); ALBUMIN 4.6 g/dL (3.4-5.0); ANION GAP 16 mmol/L (5-15); CALCIUM 9.5 mg/dL (8.5-10.1); CHLORIDE 101 mmol/L (98-107); CREATININE 1.23 mg/dL (0.7-1.3)
[2019-07-23 12:54] LABS: ALKALINE PHOSPHATASE 67 U/L (45-117); BILIRUBIN,TOTAL 0.9 mg/dL (0.2-1.0); TOTAL PROTEIN 8.4 g/dL (6.4-8.2)
[2019-07-23 13:00] LABS: MD YES
[2019-07-23 13:01] LABS: BAND#(MANUAL) 0.39 x10^3/uL; BANDS%(MANUAL) 2 % (0-7); LYMPH#(MANUAL) 1.95 x10^3/uL (1-3.4); LYMPHS% (MANUAL) 10 % (22-44); MONOS#(MANUAL) 0.59 x10^3/uL (0.3-2.7); MONOS% (MANUAL) 3 % (2-9); SEG#(MANUAL) 16.58 x10^3/uL (1.8-6.8); SEGS% (MANUAL) 85 % (42-75)
[2019-07-23 13:03] LABS: <PLATELET ESTIMATE> ADEQUATE; <PLT MORPHOLOGY> NORMAL PLT MORPH; <RBC MORPHOLOGY> NORMAL
[2019-07-23] MEDS ORDERED: PANTOPRAZOLE 40 MG IV ONE (13:14)
[2019-07-23] MEDS ORDERED: ONDANSETRON 2MG/ML, 2ML IVPush ONE (14:00)
[2019-07-23] MEDS ORDERED: ONDANSETRON 2MG/ML, 2ML ONE (14:04)
[2019-07-23 14:06] VITALS: BP 150/99
[2019-07-23] MEDS ORDERED: KETOROLAC 30 MG/1 ML ONE (14:20)
--- NOTE | 2019-07-23 14:27 | NUR ---
MEDICATED PER ORDERS. MD AT BEDSIDE. WILL DC SOON. VSS. NO NEEDS AT THIS TIME.
[2019-07-23] MEDS ORDERED: KETOROLAC 30 MG/1 ML IVPush ONE (14:30)
--- NOTE | 2019-07-23 14:50 | NUR ---
Patient/Caregiver given discharge instructions and they have confirmed that they understand the instructions. Patient ambulatory with steady gait.
== END 2019-07-23 14:59 | disposition home or self-care (01) ==
LOC: ED 12:58
DX: K29.20 Alcoholic gastritis without bleeding (principal); F10.10 Alcohol abuse, uncomplicated; R11.2 Nausea with vomiting, unspecified; I10 Essential (primary) hypertension; E11.9 Type 2 diabetes mellitus without complications; Y90.9 Presence of alcohol in blood, level not specified
CPT/HCPCS: 36415; 80053; 83690; 85025; 96361; 96374; 96375; 99284; C9113; J1885; J2405; J7030

== ENCOUNTER 2019-09-11 02:06 | Emergency (ER) | payer MEDICAID ==
[~2019-09-11] VITALS: Ht 172.7 cm; Wt 82.0 kg
--- NOTE | 2019-09-11 02:18 | NUR ---
PT TO ED PER KRYS. PT WAS JUST RELEASED [facility]. PT REPORTS HE WOULD LIKE TO TALK TO SOMEONE ABOUT HIS MENTAL HEALTH. PT REPORTS THAT HE IS SUPPOSED TO BE TAKING ZOLOFT AND BUSBAR BUT HE HAS NOT TAKEN HIS MEDICTIONS IN SEVERAL DAYS. REPORTS HE WAS IN [facility] FOR ONE DAY BUT HAD NOT TAKEN MEDICATIONS SEVERAL DAYS PRIOR TO THIS. PT DENIES ANY SI OR HI. REPORTS CHRONIC RIGHT SHOULDER PAIN FOR WHICH HE GETS STEROID INJECTIONS FOR. PLACED ON REGIONAL CONTROLLER AND CONTINUOUS PULSE OX.
[2019-09-11 02:44] LABS: BASOPHILS % (AUTO) 1 % (0-1); EOSINOPHILS # (AUTO) 0.21 x10^3/uL (0-0.4); EOSINOPHILS % (AUTO) 2 % (1-7); LYMPHOCYTES # (AUTO) 2.12 x10^3/uL (1-3.4); LYMPHOCYTES % (AUTO) 18 % (22-44); MD NO; MEAN CORPUSCULAR HEMOGLOBIN 29.2 pg (27.5-34.5); MEAN CORPUSCULAR HGB CONC 32.9 g/dL (33.2-36.2); MEAN CORPUSCULAR VOLUME 88.6 fL (81-97); MEAN PLATELET VOLUME 7.6 fL (7.4-10.4); MONOCYTES # (AUTO) 1.03 x10^3/uL (0.2-0.8); MONOCYTES % (AUTO) 9 % (2-9); NEUTROPHILS # (AUTO) 8.17 x10^3/uL (1.8-6.8); NEUTROPHILS % (AUTO) 70 % (42-75); PLATELET COUNT 347 x10^3/uL (130-400); RED BLOOD COUNT 5.82 x10^6/uL (4.38-5.82); RED CELL DISTRIBUTION WIDTH 14.3 % (9.4-14.8)
[2019-09-11 02:56] LABS: ALBUMIN 4.1 g/dL (3.4-5.0); ANION GAP 5 mmol/L (5-15); CALCIUM 8.9 mg/dL (8.5-10.1); CHLORIDE 107 mmol/L (98-107); CREATININE 0.91 mg/dL (0.7-1.3)
[2019-09-11 02:58] LABS: SALICYLATE LEVEL < 1.7 mg/dL (2.8-20.0)
[2019-09-11 04:37] VITALS: BP 144/88
== END 2019-09-11 04:39 | disposition home or self-care (01) ==
LOC: ED 04:31
DX: F32.9 Major depressive disorder, single episode, unspecified (principal); I10 Essential (primary) hypertension; E11.9 Type 2 diabetes mellitus without complications; Z76.0 Encounter for issue of repeat prescription
CPT/HCPCS: 36415; 80048; 80307; 82040; 85025; 99283

== ENCOUNTER 2019-09-12 21:57 | Observation (INO) | payer MEDICAID ==
[~2019-09-12] VITALS: Ht 172.7 cm; Wt 81.9 kg
--- NOTE | 2019-09-12 22:08 | NUR ---
PT UP TO RESTOOM W/ STEADY GAIT AT THIS TIME
[2019-09-12] MEDS ORDERED: ACETAMINOPHEN 325 MG TABLET PO ONE (22:30)
[2019-09-12 22:31] LABS: BASOPHILS # (AUTO) 0.05 x10^3/uL (0-0.1); BASOPHILS % (AUTO) 1 % (0-1); EOSINOPHILS # (AUTO) 0.13 x10^3/uL (0-0.4); EOSINOPHILS % (AUTO) 1 % (1-7); LYMPHOCYTES # (AUTO) 1.93 x10^3/uL (1-3.4); LYMPHOCYTES % (AUTO) 20 % (22-44); MD NO; MEAN CORPUSCULAR HEMOGLOBIN 28.9 pg (27.5-34.5); MEAN CORPUSCULAR HGB CONC 32.8 g/dL (33.2-36.2); MEAN CORPUSCULAR VOLUME 88.3 fL (81-97); MEAN PLATELET VOLUME 7.7 fL (7.4-10.4); MONOCYTES # (AUTO) 0.65 x10^3/uL (0.2-0.8); MONOCYTES % (AUTO) 7 % (2-9); NEUTROPHILS % (AUTO) 71 % (42-75); PLATELET COUNT 376 x10^3/uL (130-400); RED BLOOD COUNT 5.85 x10^6/uL (4.38-5.82); RED CELL DISTRIBUTION WIDTH 13.7 % (9.4-14.8)
[2019-09-12 22:43] LABS: ALBUMIN 4.1 g/dL (3.4-5.0); ANION GAP 5 mmol/L (5-15); CALCIUM 9.4 mg/dL (8.5-10.1); CHLORIDE 105 mmol/L (98-107); CREATININE 1.01 mg/dL (0.7-1.3)
[2019-09-12 22:47] LABS: TROPONIN I 0.056 ng/mL (0.000-0.045)
--- NOTE | 2019-09-12 23:08 | NUR ---
PT RESTING ON ERNIE KAISER AT THIS TIME. RESTING OFF AN ON
[2019-09-12] MEDS ORDERED: ASPIRIN 81 MG TABLET CHEW PO ONE (23:30)
[2019-09-12] MEDS ORDERED: CEFAZOLIN PMX 1GM/50ML 50 ML IV ONE (23:30)
[2019-09-12] MEDS ORDERED: ASPIRIN 81 MG TABLET CHEW ONE (23:34)
[2019-09-12] MEDS ORDERED: CEFAZOLIN PMX 1GM/50ML 50 ML ONE (23:34)
--- NOTE | 2019-09-12 23:40 | NUR ---
PER EDITH ALBERTS NO CULTURES TO BE DRAWN PRIOR TO ABX START.
[2019-09-13] MEDS ORDERED: ACETAMINOPHEN 325 MG TABLET ONE (00:11)
--- NOTE | 2019-09-13 00:18 | NUR ---
REPORT TO BHASKAR DUMONT PT READY FOR TRANSPORT TO FLOOR
--- NOTE | 2019-09-13 00:22 | NUR ---
hospitalist at bedside for assess
[2019-09-13] MEDS ORDERED: CHLORDIAZEPOXIDE 25 MG CAPSULE PO SCH (00:30)
[2019-09-13 00:32] LABS: ALBUMIN 3.9 g/dL (3.4-5.0); BILIRUBIN, DIRECT 0.3 mg/dL (0.1-0.2)
[2019-09-13 00:33] LABS: BILIRUBIN,TOTAL 1.3 mg/dL (0.2-1.0); TOTAL PROTEIN 7.5 g/dL (6.4-8.2)
[2019-09-13 00:36] VITALS: BP 160/95
[2019-09-13] MEDS ORDERED: ONDANSETRON ODT 4 MG PO PRN (01:00)
[2019-09-13] MEDS ORDERED: CEFAZOLIN PMX 1GM/50ML 50 ML IV ONE (01:00)
[2019-09-13] MEDS ORDERED: ACETAMINOPHEN 325 MG TABLET PO PRN (01:00)
[2019-09-13] MEDS ORDERED: LORazepam 1MG TABLET PO PRN ×4 (01:00)
[2019-09-13] MEDS ORDERED: NITROGLYCERIN 0.4 MG/SPRAY SL PRN (01:00)
[2019-09-13] MEDS ORDERED: LORazepam 0.5MG TABLET PO PRN (01:00)
[2019-09-13] MEDS ORDERED: DEXTROSE 4 GM TAB.CHEW PO PRN (01:00)
[2019-09-13] MEDS ORDERED: LORazepam 2 MG/ML, 1ML IV PRN ×5 (01:00)
[2019-09-13] MEDS ORDERED: LABETALOL 5MG/ML, 20ML IVPush PRN (01:00)
[2019-09-13] MEDS ORDERED: hydrALAzine 20 MG/ML, 1ML IVPush PRN (01:00)
[2019-09-13] MEDS ORDERED: ENALAPRILAT 1.25 MG/ML, 2ML IVPush PRN (01:00)
[2019-09-13] MEDS ORDERED: DEXTROSE 50%, 50ML SYRINGE IVPush PRN (01:00)
[2019-09-13] MEDS ORDERED: GLUCAGON 1 MG IM PRN (01:00)
[2019-09-13] MEDS ORDERED: NITROGLYCERIN 0.4 MG BOTTLE (25 TABS) SL PRN ×2 (01:00)
[2019-09-13] MEDS ORDERED: ENOXAPARIN 40 MG/0.4 ML SQ SCH (01:00)
[2019-09-13] MEDS: LACTATED RINGERS 1,000 ML IV SCH ×2 (01:12→09:20)
[2019-09-13] MEDS: GABAPENTIN 400 MG CAPSULE PO SCH ×3 (01:12→13:49)
[2019-09-13] MEDS: BUSPIRONE 10 MG TABLET PO SCH ×3 (01:12→16:02)
[2019-09-13 05:50] LABS: TROPONIN I 0.056 ng/mL (0.000-0.045)
[2019-09-13] MEDS ORDERED: CHLORDIAZEPOXIDE 25 MG CAPSULE PO PRN (06:00)
[2019-09-13 07:05] VITALS: BP 160/11
[2019-09-13] MEDS ORDERED: PANTOPRAZOLE 40MG TABLET PO SCH (07:30)
[2019-09-13] MEDS ORDERED: BUSPIRONE 5 MG TABLET ONE (07:54)
[2019-09-13] MEDS ORDERED: CEFAZOLIN 2,000 MG in SODIUM CHLORIDE 0.9% 50 ML IV SCH (08:00)
[2019-09-13] MEDS: CEFAZOLIN PMX 2GM/50ML 50 ML IVPB SCH ×2 (08:03→08:07)
[2019-09-13] MEDS: INSULIN LISPRO 100 UNITS/ML, PEN SQ-INSULIN SCH ×2 (08:06→11:00)
[2019-09-13] MEDS ORDERED: REGADENOSON 0.4 MG/5 ML SYRINGE ONE (08:07)
[2019-09-13] MEDS ORDERED: SODIUM CHLORIDE FLUSH 10ML SYR IVF SCH (09:00)
[2019-09-13] MEDS ORDERED: NALTREXONE HCL 50 MG TABLET PO SCH (09:00)
[2019-09-13] MEDS ORDERED: MULTIVITAMINS/MINERALS TABLET PO SCH (09:00)
[2019-09-13] MEDS ORDERED: SERTRALINE 100MG TABLET PO SCH (09:00)
[2019-09-13] MEDS ORDERED: SENNA/DOCUSATE TABLET PO SCH (09:00)
[2019-09-13] MEDS: OXYcodone/APAP 5/325MG TABLET PO PRN ×2 (11:23→16:00)
[2019-09-13] MEDS ORDERED: LORazepam 0.5MG TABLET PO ONE (13:00)
[2019-09-13] MEDS ORDERED: DOXY100T23 PO (15:13)
[2019-09-13] MEDS ORDERED: MELO15TA24 PO (15:15)
[2019-09-13 16:15] LABS: TROPONIN I 0.048 ng/mL (0.000-0.045)
[2019-09-13] MEDS ORDERED: ATORVASTATIN 80 MG TABLET PO SCH (21:00)
[2019-09-14] MEDS ORDERED: THIAMINE 100 MG in DEXTROSE 5% 50 ML IVPB SCH (09:00)
== END 2019-09-13 18:06 | disposition home or self-care (01) ==
LOC: ED 23:25 → INTOOBSV 23:49 → EDIP 23:49 → 5SO 09-13 00:30
PROVIDERS: ADMIT Family Medicine; ATTEND Family Medicine
DX: R42 Dizziness and giddiness (principal); R79.89 Other specified abnormal findings of blood chemistry; L03.115 Cellulitis of right lower limb; S93.401A Sprain of unspecified ligament of right ankle, initial encounter; F10.11 Alcohol abuse, in remission; E11.40 Type 2 diabetes mellitus with diabetic neuropathy, unspecified; E78.5 Hyperlipidemia, unspecified; F41.8 Other specified anxiety disorders; R07.89 Other chest pain; R51 Headache; I25.9 Chronic ischemic heart disease, unspecified; I50.9 Heart failure, unspecified; R55 Syncope and collapse; X58.XXXA Exposure to other specified factors, initial encounter; Y93.89 Activity, other specified; Y92.89 Other specified places as the place of occurrence of the external cause; Z79.899 Other long term (current) drug therapy; Z85.07 Personal history of malignant neoplasm of pancreas; Z91.19 Patient's noncompliance with other medical treatment and regimen; Z79.84 Long term (current) use of oral hypoglycemic drugs; Z88.0 Allergy status to penicillin
CPT/HCPCS: 36415; 71045; 73610; 78452; 80048; 80076; 82040; 82962; 83036; 83690; 83735; 84100; 84484; 85025; 93005; 93017; 96361; 96365; 96366; 96372; 96375; 99285; A9502; C9898; G0378; J0690; J1650; J2060; J2785; J7120; Q0177

== ENCOUNTER 2019-09-17 11:19 | Emergency (ER) | payer MEDICAID ==
[~2019-09-17] VITALS: Ht 172.7 cm; Wt 82.6 kg
[~2019-09-17 11:19] MED LIST changes: +DOXY100T23 PO; +MELO15TA24 PO
[2019-09-17] MEDS ORDERED: CEFAZOLIN PMX 1GM/50ML 50 ML IV ONE (12:00)
[2019-09-17] MEDS ORDERED: SODIUM CHLORIDE 0.9% 1,000ML IVBOLUS ONE (12:00)
--- NOTE | 2019-09-17 12:04 | NUR ---
Assumed care of patient. Recently DC'd from [facility] after admit for elevated trop and cellulitis. Sent home with doxycycline, but patient reports N/V from meds and worries he is not actually get the dose he needs. Presents today with BLE erythema and edema, RLE worse than LLE. NAD. IV started, labs and blood cultures drawn, and NS hung. Placed on NIBP and pulse ox. Will continue to monitor.
[2019-09-17] MEDS ORDERED: CEFAZOLIN PMX 1GM/50ML 50 ML ONE (12:07)
[2019-09-17 12:28] LABS: BASOPHILS # (AUTO) 0.05 x10^3/uL (0-0.1); BASOPHILS % (AUTO) 1 % (0-1); EOSINOPHILS # (AUTO) 0.19 x10^3/uL (0-0.4); EOSINOPHILS % (AUTO) 2 % (1-7); LYMPHOCYTES # (AUTO) 1.58 x10^3/uL (1-3.4); LYMPHOCYTES % (AUTO) 16 % (22-44); MD NO; MEAN CORPUSCULAR HEMOGLOBIN 29.4 pg (27.5-34.5); MEAN CORPUSCULAR HGB CONC 32.9 g/dL (33.2-36.2); MEAN CORPUSCULAR VOLUME 89.5 fL (81-97); MEAN PLATELET VOLUME 8.2 fL (7.4-10.4); MONOCYTES # (AUTO) 0.51 x10^3/uL (0.2-0.8); MONOCYTES % (AUTO) 5 % (2-9); NEUTROPHILS % (AUTO) 77 % (42-75); PLATELET COUNT 402 x10^3/uL (130-400); RED BLOOD COUNT 6.01 x10^6/uL (4.38-5.82)
[2019-09-17 12:36] VITALS: BP 137/90
--- NOTE | 2019-09-17 12:36 | NUR ---
US complete. No other needs at this time.
[2019-09-17 12:40] LABS: ALBUMIN 4.1 g/dL (3.4-5.0); ANION GAP 6 mmol/L (5-15); CALCIUM 9.6 mg/dL (8.5-10.1); CHLORIDE 106 mmol/L (98-107)
[2019-09-17 12:41] LABS: CREATININE 0.92 mg/dL (0.7-1.3)
== END 2019-09-17 14:00 | disposition home or self-care (01) ==
LOC: ED 12:26
DX: L03.115 Cellulitis of right lower limb (principal); R11.10 Vomiting, unspecified; E78.00 Pure hypercholesterolemia, unspecified; E11.9 Type 2 diabetes mellitus without complications; E87.1 Hypo-osmolality and hyponatremia; E16.2 Hypoglycemia, unspecified
CPT/HCPCS: 36415; 80048; 82040; 83605; 85025; 87040; 93971; 96361; 96365; 96366; 99284; J0690; J7030

== ENCOUNTER 2019-09-19 23:16 | Emergency (ER) | payer MEDICAID | END 2019-09-19 23:32 | LOC: ED 23:26 | DX: R10.9 Unspecified abdominal pain (principal); Z53.21 Procedure and treatment not carried out due to patient leaving prior to being seen by health care provider ==

== ENCOUNTER 2019-09-20 08:13 | Emergency (ER) | payer MEDICAID ==
[~2019-09-20] VITALS: Ht 172.7 cm; Wt 81.7 kg
[2019-09-20] MEDS ORDERED: FAMOTIDINE 20 MG TABLET ONE (08:39)
[2019-09-20] MEDS ORDERED: ONDANSETRON ODT 4 MG ONE (08:40)
--- NOTE | 2019-09-20 08:44 | NUR ---
PT REPORTS HAVING ABD PAIN AFTER N/V YESTERDAY 5 TIMES. WENT OVER POC FROM ORDER LIST AGREES TO POC. DENIES SI/HI THOUGHTS
[2019-09-20] MEDS ORDERED: FAMOTIDINE 20 MG TABLET PO ONE (09:00)
[2019-09-20] MEDS ORDERED: ONDANSETRON ODT 4 MG PO ONE (09:00)
[2019-09-20 10:26] VITALS: BP 121/64
== END 2019-09-20 10:27 | disposition home or self-care (01) ==
LOC: ED 08:54
DX: R11.2 Nausea with vomiting, unspecified (principal); I10 Essential (primary) hypertension; E11.9 Type 2 diabetes mellitus without complications; E78.00 Pure hypercholesterolemia, unspecified
CPT/HCPCS: 99283; Q0162